=== PATIENT | male | born 1950 | race Caucasian/White ===

== ENCOUNTER → 2017-12-01 | Outpatient (CLI) | payer BC, MEDICARE | LOC: M ADAMS 10:15 | DX: I12.9 Hypertensive chronic kidney disease with stage 1 through stage 4 chronic kidney disease, or unspecified chronic kidney disease (principal) | CPT/HCPCS: 71046 ==

== ENCOUNTER → 2018-01-12 | Outpatient (REF) ==
[2018-01-12 09:08] LABS: HEMATOCRIT 33.5 % (42.0-52.0); HEMOGLOBIN 11.2 g/dl (14.0-18.0); MEAN CORPUSCULAR HEMOGLOBIN 31.5 pg (27.0-33.0); MEAN CORPUSCULAR HGB CONC 33.4 g/dl (32.0-36.5); MEAN CORPUSCULAR VOLUME 94.4 fl (80.0-96.0); PLATELET COUNT, AUTOMATED 336 10^3/uL (150-450); RED BLOOD COUNT 3.55 10^6/uL (4.30-6.10); RED CELL DISTRIBUTION WIDTH 14.7 % (11.5-14.5); WHITE BLOOD COUNT 8.9 10^3/uL (4.0-10.0)
[2018-01-12 09:47] LABS: ALBUMIN 2.6 GM/DL (3.2-5.2); ALBUMIN/GLOBULIN RATIO 0.81 (1.00-1.93); ALKALINE PHOSPHATASE 206 U/L (45-117); ALT/SGPT 24 U/L (12-78); ANION GAP 7 MEQ/L (8-16); AST/SGOT 14 U/L (7-37); BILIRUBIN,TOTAL 0.6 MG/DL (0.2-1.0); BLOOD UREA NITROGEN 26 MG/DL (7-18); CALCIUM LEVEL 8.6 MG/DL (8.8-10.2); CARBON DIOXIDE LEVEL 35 MEQ/L (21-32); CHLORIDE LEVEL 92 MEQ/L (98-107); CREATININE FOR GFR 0.71 MG/DL (0.70-1.30); GLOMERULAR FILTRATION RATE > 60.0 (>49); GLUCOSE, FASTING 266 MG/DL (70-100); POTASSIUM SERUM 4.3 MEQ/L (3.5-5.1); SODIUM LEVEL 134 MEQ/L (136-145); TOTAL PROTEIN 5.8 GM/DL (6.4-8.2)
== END ==
DX: I10 Essential (primary) hypertension (principal)

== ENCOUNTER → 2018-01-19 | Outpatient (REF) ==
[2018-01-19 10:41] LABS: BASO # 0.1 10^3/uL (0.0-0.2); BASO % 0.6 % (0.0-1.0); EOS # 0.1 10^3/uL (0.0-0.50); EOS % 1.7 % (0.0-3.0); HEMATOCRIT 35.8 % (42.0-52.0); HEMOGLOBIN 11.4 g/dl (14.0-18.0); IMMATURE GRANULOCYTE % 0.5 % (0-3.0); LYMPH % 11.9 % (24.0-44.0); MEAN CORPUSCULAR HEMOGLOBIN 30.8 pg (27.0-33.0); MEAN CORPUSCULAR HGB CONC 31.8 g/dl (32.0-36.5); MEAN CORPUSCULAR VOLUME 96.8 fl (80.0-96.0); MONO % 11.8 % (0.0-5.0); NEUTROPHILS # 6.1 10^3/uL (1.8-7.7); NEUTROPHILS % 73.5 % (36.0-66.0); PLATELET COUNT, AUTOMATED 243 10^3/uL (150-450); WHITE BLOOD COUNT 8.3 10^3/uL (4.0-10.0)
[2018-01-19 11:05] LABS: ALBUMIN 2.8 GM/DL (3.2-5.2); ALBUMIN/GLOBULIN RATIO 0.88 (1.00-1.93); ALKALINE PHOSPHATASE 269 U/L (45-117); ALT/SGPT 28 U/L (12-78); ANION GAP 6 MEQ/L (8-16); AST/SGOT 20 U/L (7-37); BILIRUBIN,TOTAL 0.4 MG/DL (0.2-1.0); BLOOD UREA NITROGEN 34 MG/DL (7-18); CALCIUM LEVEL 8.2 MG/DL (8.8-10.2); CARBON DIOXIDE LEVEL 35 MEQ/L (21-32); CHLORIDE LEVEL 95 MEQ/L (98-107); CREATININE FOR GFR 0.75 MG/DL (0.70-1.30); GLOMERULAR FILTRATION RATE > 60.0 (>49); GLUCOSE, FASTING 287 MG/DL (70-100); POTASSIUM SERUM 4.8 MEQ/L (3.5-5.1); SODIUM LEVEL 136 MEQ/L (136-145)
== END ==
DX: I48.91 Unspecified atrial fibrillation (principal); I10 Essential (primary) hypertension

== ENCOUNTER → 2018-01-25 | Outpatient (CLI) | payer MEDICARE, BC, OTHER | LOC: M RAD 07:52 | DX: R22.41 Localized swelling, mass and lump, right lower limb (principal) | CPT/HCPCS: 76882 ==

== ENCOUNTER → 2018-01-26 | Outpatient (REF) ==
[2018-01-25 10:29] LABS: BASO # 0.1 10^3/uL (0.0-0.2); BASO % 0.6 % (0.0-1.0); EOS # 0.2 10^3/uL (0.0-0.50); EOS % 2.3 % (0.0-3.0); HEMATOCRIT 38.8 % (42.0-52.0); HEMOGLOBIN 12.4 g/dl (14.0-18.0); IMMATURE GRANULOCYTE % 0.6 % (0-3.0); LYMPH # 1.6 10^3/uL (1.5-4.5); LYMPH % 20.1 % (24.0-44.0); MEAN CORPUSCULAR HEMOGLOBIN 31.3 pg (27.0-33.0); MONO # 0.8 10^3/uL (0.0-0.8); MONO % 10.2 % (0.0-5.0); NEUTROPHILS # 5.1 10^3/uL (1.8-7.7); NEUTROPHILS % 66.2 % (36.0-66.0); PLATELET COUNT, AUTOMATED 268 10^3/uL (150-450); RED BLOOD COUNT 3.96 10^6/uL (4.30-6.10); RED CELL DISTRIBUTION WIDTH 15.7 % (11.5-14.5); WHITE BLOOD COUNT 7.8 10^3/uL (4.0-10.0)
[2018-01-25 11:05] LABS: ALBUMIN 3.1 GM/DL (3.2-5.2); ALBUMIN/GLOBULIN RATIO 0.86 (1.00-1.93); ALKALINE PHOSPHATASE 244 U/L (45-117); ALT/SGPT 33 U/L (12-78); ANION GAP 6 MEQ/L (8-16); AST/SGOT 23 U/L (7-37); BILIRUBIN,TOTAL 0.4 MG/DL (0.2-1.0); BLOOD UREA NITROGEN 38 MG/DL (7-18); CARBON DIOXIDE LEVEL 37 MEQ/L (21-32); CHLORIDE LEVEL 95 MEQ/L (98-107); CREATININE FOR GFR 0.78 MG/DL (0.70-1.30); GLOMERULAR FILTRATION RATE > 60.0 (>49); GLUCOSE, FASTING 108 MG/DL (70-100); POTASSIUM SERUM 4.1 MEQ/L (3.5-5.1); SODIUM LEVEL 138 MEQ/L (136-145); TOTAL PROTEIN 6.7 GM/DL (6.4-8.2)
== END ==
DX: E87.5 Hyperkalemia (principal); I10 Essential (primary) hypertension

== ENCOUNTER → 2018-01-31 | Outpatient (CLI) | payer MEDICARE | LOC: M ST 11:12 | DX: R13.12 Dysphagia, oropharyngeal phase (principal) | CPT/HCPCS: 74230 ==

== ENCOUNTER → 2018-02-09 | Outpatient (REF) ==
[2018-02-09 13:51] LABS: ANION GAP 6 MEQ/L (8-16); BLOOD UREA NITROGEN 10 MG/DL (7-18); CALCIUM LEVEL 8.5 MG/DL (8.8-10.2); CARBON DIOXIDE LEVEL 32 MEQ/L (21-32); CHLORIDE LEVEL 103 MEQ/L (98-107); CREATININE FOR GFR 0.81 MG/DL (0.70-1.30); GLOMERULAR FILTRATION RATE > 60.0 (>49); GLUCOSE, FASTING 245 MG/DL (70-100); POTASSIUM SERUM 4.5 MEQ/L (3.5-5.1); SODIUM LEVEL 141 MEQ/L (136-145)
== END ==
DX: I48.91 Unspecified atrial fibrillation (principal); E11.9 Type 2 diabetes mellitus without complications; E78.00 Pure hypercholesterolemia, unspecified; Z95.1 Presence of aortocoronary bypass graft; I10 Essential (primary) hypertension; J44.9 Chronic obstructive pulmonary disease, unspecified; Z93.1 Gastrostomy status

== ENCOUNTER → 2018-02-17 | Outpatient (REF) | payer MEDICARE, BC ==
[2018-02-17 12:18] LABS: HEMATOCRIT 45.8 % (42.0-52.0); HEMOGLOBIN 14.6 g/dl (13.5-17.5); MEAN CORPUSCULAR HEMOGLOBIN 29.9 pg (27.0-33.0); MEAN CORPUSCULAR HGB CONC 31.9 g/dl (32.0-36.5); MEAN CORPUSCULAR VOLUME 93.7 fl (80.0-96.0); PLATELET COUNT, AUTOMATED 301 10^3/uL (150-450); RED BLOOD COUNT 4.89 10^6/uL (4.30-6.10); RED CELL DISTRIBUTION WIDTH 14.6 % (11.5-14.5); WHITE BLOOD COUNT 8.4 10^3/uL (4.0-10.0)
[2018-02-17 12:50] LABS: ALBUMIN 3.6 GM/DL (3.2-5.2); ALBUMIN/GLOBULIN RATIO 1.09 (1.00-1.93); ALKALINE PHOSPHATASE 128 U/L (45-117); ALT/SGPT 23 U/L (12-78); ANION GAP 7 MEQ/L (8-16); AST/SGOT 18 U/L (7-37); BILIRUBIN,TOTAL 0.5 MG/DL (0.2-1.0); BLOOD UREA NITROGEN 13 MG/DL (7-18); CALCIUM LEVEL 9.1 MG/DL (8.8-10.2); CARBON DIOXIDE LEVEL 31 MEQ/L (21-32); CHLORIDE LEVEL 102 MEQ/L (98-107); CHOLESTEROL LEVEL 136 MG/DL (<200); CREATININE FOR GFR 0.64 MG/DL (0.70-1.30); GLOMERULAR FILTRATION RATE > 60.0 (>49); GLUCOSE, FASTING 132 MG/DL (70-100); HDL CHOLESTEROL 50 MG/DL (>40); LDL CHOLESTEROL 63.8 MG/DL (<100); NON-HDL-C 86 MG/DL; POTASSIUM SERUM 4.1 MEQ/L (3.5-5.1); SODIUM LEVEL 140 MEQ/L (136-145); TOTAL PROTEIN 6.9 GM/DL (6.4-8.2); TRIGLYCERIDES LEVEL 111 MG/DL (<150)
[2018-02-17 13:32] LABS: ESTIMATED AVERAGE GLUCOSE 169 MG/DL (60-110); HEMOGLOBIN A1c 7.5 %
== END ==
LOC: M SFHCADAM 09:54
DX: J32.9 Chronic sinusitis, unspecified (principal); E11.21 Type 2 diabetes mellitus with diabetic nephropathy; E78.2 Mixed hyperlipidemia
CPT/HCPCS: 80053

== ENCOUNTER 2018-03-17 11:48 | Outpatient (RCR) | payer MEDICARE, BC | END 2018-03-21 | LOC: M CR 11:48 | DX: Z51.89 Encounter for other specified aftercare (principal); Z95.1 Presence of aortocoronary bypass graft | CPT/HCPCS: 93798 ==

== ENCOUNTER 2018-03-24 14:36 | Outpatient (RCR) | payer MEDICARE, BC | END 2018-04-21 | LOC: M CR 14:36 | DX: Z95.1 Presence of aortocoronary bypass graft (principal) | CPT/HCPCS: 93798 ==

== ENCOUNTER → 2018-04-04 | Outpatient (CLI) | payer MEDICARE, BC ==
[~2018-04-04] MED LIST: ISOVUE-370 76% 100ML VIAL (Q9967) As Ordered
== END ==
LOC: M RAD 12:17
DX: J90 Pleural effusion, not elsewhere classified (principal); L72.3 Sebaceous cyst; R93.0 Abnormal findings on diagnostic imaging of skull and head, not elsewhere classified
CPT/HCPCS: Q9967

== ENCOUNTER → 2018-05-04 | Outpatient (CLI) | payer MEDICARE, BC | LOC: M PLARAD 07:35 | DX: C13.9 Malignant neoplasm of hypopharynx, unspecified (principal); J90 Pleural effusion, not elsewhere classified; M48.02 Spinal stenosis, cervical region; Z93.0 Tracheostomy status | CPT/HCPCS: 78815 ==

== ENCOUNTER → 2018-05-20 | Outpatient (REF) | payer MEDICARE, BC ==
[2018-05-20 19:24] LABS: BASO # 0.1 10^3/uL (0.0-0.2); BASO % 0.7 % (0.0-1.0); EOS # 0.2 10^3/uL (0.0-0.50); EOS % 2.2 % (0.0-3.0); HEMATOCRIT 41.7 % (42.0-52.0); HEMOGLOBIN 13.6 g/dl (13.5-17.5); IMMATURE GRANULOCYTE % 0.1 % (0-3.0); LYMPH # 2.4 10^3/uL (1.5-4.5); MEAN CORPUSCULAR HEMOGLOBIN 28.9 pg (27.0-33.0); MEAN CORPUSCULAR HGB CONC 32.6 g/dl (32.0-36.5); MEAN CORPUSCULAR VOLUME 88.5 fl (80.0-96.0); MONO # 0.8 10^3/uL (0.0-0.8); MONO % 8.5 % (0.0-5.0); NEUTROPHILS # 5.7 10^3/uL (1.8-7.7); NEUTROPHILS % 62.5 % (36.0-66.0); PLATELET COUNT, AUTOMATED 344 10^3/uL (150-450); RED BLOOD COUNT 4.71 10^6/uL (4.30-6.10); RED CELL DISTRIBUTION WIDTH 16.2 % (11.5-14.5); WHITE BLOOD COUNT 9.2 10^3/uL (4.0-10.0)
[2018-05-20 19:31] LABS: ANION GAP 6 MEQ/L (8-16); BLOOD UREA NITROGEN 12 MG/DL (7-18); CALCIUM LEVEL 8.6 MG/DL (8.8-10.2); CARBON DIOXIDE LEVEL 32 MEQ/L (21-32); CHLORIDE LEVEL 104 MEQ/L (98-107); GLOMERULAR FILTRATION RATE > 60.0 (>49); GLUCOSE, FASTING 165 MG/DL (70-100); POTASSIUM SERUM 4.5 MEQ/L (3.5-5.1); SODIUM LEVEL 142 MEQ/L (136-145)
== END ==
LOC: M SFHCADAM 15:27
DX: E11.21 Type 2 diabetes mellitus with diabetic nephropathy (principal); J04.10 Acute tracheitis without obstruction
CPT/HCPCS: 80048

== ENCOUNTER → 2018-05-26 | Outpatient (CLI) | payer MEDICARE, BC | LOC: M ONCR 13:12 | DX: C13.9 Malignant neoplasm of hypopharynx, unspecified (principal) ==

== ENCOUNTER → 2018-06-06 | Outpatient (REF) | payer MEDICARE, BC ==
[2018-06-06 14:27] LABS: INR 1.02; PROTHROMBIN TIME 13.6 SECONDS (12.1-14.4)
[2018-06-06 14:28] LABS: PARTIAL THROMBOPLASTIN TIME 28.5 SECONDS (25.4-37.6)
== END ==
LOC: M LAB REF 13:45
DX: C13.9 Malignant neoplasm of hypopharynx, unspecified (principal)
CPT/HCPCS: 85610

== ENCOUNTER 2018-06-07 09:56 | Outpatient (RCR) | payer MEDICARE, BC | END 2018-06-21 | LOC: M ONCR 09:56 | DX: C13.9 Malignant neoplasm of hypopharynx, unspecified (principal) | CPT/HCPCS: 77300 ==

== ENCOUNTER → 2018-06-21 | Outpatient (CLI) | payer MEDICARE, BC ==
[~2018-06-21] MED LIST changes: -ISOVUE-370 76% 100ML VIAL (Q9967) As Ordered; +LIDOCAINE 2% MDV 20 ML VIAL As Ordered; +ceFAZolin 1GM INJ (J0690 PER 500MG) As Ordered
== END | disposition home or self-care (01) ==
LOC: M IRPRO 08:09
DX: C32.9 Malignant neoplasm of larynx, unspecified (principal)
CPT/HCPCS: 36561

== ENCOUNTER 2018-06-22 10:17 | Outpatient (RCR) | payer MEDICARE, BC | END 2018-07-22 | LOC: M ONCR 10:17 | DX: C13.9 Malignant neoplasm of hypopharynx, unspecified (principal) | CPT/HCPCS: 77300 ==

== ENCOUNTER → 2018-06-24 | Outpatient (REF) | payer MEDICARE, BC ==
[2018-06-24 14:13] LABS: MAGNESIUM LEVEL 2.3 MG/DL (1.8-2.4)
== END ==
LOC: M LAB REF 13:50
DX: C13.9 Malignant neoplasm of hypopharynx, unspecified (principal)
CPT/HCPCS: 83735

== ENCOUNTER → 2018-07-06 | Outpatient (CLI) | payer MEDICARE, BC ==
[2018-07-06 08:21] LABS: BASO # 0.1 10^3/uL (0.0-0.2); BASO % 0.7 % (0.0-1.0); EOS # 0.1 10^3/uL (0.0-0.50); EOS % 1.2 % (0.0-3.0); HEMOGLOBIN 14.6 g/dl (13.5-17.5); IMMATURE GRANULOCYTE % 0.3 % (0-3.0); LYMPH # 0.6 10^3/uL (1.5-4.5); LYMPH % 7.3 % (24.0-44.0); MEAN CORPUSCULAR HEMOGLOBIN 30.4 pg (27.0-33.0); MEAN CORPUSCULAR HGB CONC 33.2 g/dl (32.0-36.5); MEAN CORPUSCULAR VOLUME 91.7 fl (80.0-96.0); MONO # 0.7 10^3/uL (0.0-0.8); MONO % 9.1 % (0.0-5.0); NEUTROPHILS # 6.3 10^3/uL (1.8-7.7); NEUTROPHILS % 81.4 % (36.0-66.0); PLATELET COUNT, AUTOMATED 204 10^3/uL (150-450); RED CELL DISTRIBUTION WIDTH 16.7 % (11.5-14.5); WHITE BLOOD COUNT 7.7 10^3/uL (4.0-10.0)
[2018-07-06 09:07] LABS: ALBUMIN 3.6 GM/DL (3.2-5.2); ALBUMIN/GLOBULIN RATIO 1.33 (1.00-1.93); ALKALINE PHOSPHATASE 87 U/L (45-117); ALT/SGPT 25 U/L (12-78); ANION GAP 7 MEQ/L (8-16); AST/SGOT 16 U/L (7-37); BILIRUBIN,TOTAL 0.4 MG/DL (0.2-1.0); BLOOD UREA NITROGEN 13 MG/DL (7-18); CARBON DIOXIDE LEVEL 31 MEQ/L (21-32); CHLORIDE LEVEL 103 MEQ/L (98-107); CREATININE FOR GFR 0.75 MG/DL (0.70-1.30); GLOMERULAR FILTRATION RATE > 60.0 (>49); GLUCOSE, FASTING 98 MG/DL (70-100); POTASSIUM SERUM 4.5 MEQ/L (3.5-5.1); SODIUM LEVEL 141 MEQ/L (136-145); TOTAL PROTEIN 6.3 GM/DL (6.4-8.2)
== END ==
LOC: M LAB 08:01
DX: C13.9 Malignant neoplasm of hypopharynx, unspecified (principal)
CPT/HCPCS: 80053

== ENCOUNTER → 2018-07-13 | Outpatient (CLI) | payer MEDICARE, BC ==
[2018-07-13 08:37] LABS: BASO % 0.8 % (0.0-1.0); EOS # 0.1 10^3/uL (0.0-0.50); EOS % 1.1 % (0.0-3.0); HEMATOCRIT 40.6 % (42.0-52.0); HEMOGLOBIN 13.7 g/dl (13.5-17.5); IMMATURE GRANULOCYTE % 0.4 % (0-3.0); LYMPH # 0.6 10^3/uL (1.5-4.5); LYMPH % 10.5 % (24.0-44.0); MEAN CORPUSCULAR HGB CONC 33.7 g/dl (32.0-36.5); MEAN CORPUSCULAR VOLUME 91.9 fl (80.0-96.0); MONO # 0.4 10^3/uL (0.0-0.8); MONO % 7.9 % (0.0-5.0); NEUTROPHILS # 4.1 10^3/uL (1.8-7.7); NEUTROPHILS % 79.3 % (36.0-66.0); PLATELET COUNT, AUTOMATED 121 10^3/uL (150-450); RED BLOOD COUNT 4.42 10^6/uL (4.30-6.10); RED CELL DISTRIBUTION WIDTH 16.7 % (11.5-14.5); WHITE BLOOD COUNT 5.2 10^3/uL (4.0-10.0)
[2018-07-13 08:53] LABS: ALBUMIN 3.3 GM/DL (3.2-5.2); ALBUMIN/GLOBULIN RATIO 1.18 (1.00-1.93); ALKALINE PHOSPHATASE 92 U/L (45-117); ALT/SGPT 22 U/L (12-78); ANION GAP 6 MEQ/L (8-16); AST/SGOT 10 U/L (7-37); BILIRUBIN,TOTAL 0.4 MG/DL (0.2-1.0); BLOOD UREA NITROGEN 18 MG/DL (7-18); CALCIUM LEVEL 8.6 MG/DL (8.8-10.2); CARBON DIOXIDE LEVEL 33 MEQ/L (21-32); CHLORIDE LEVEL 100 MEQ/L (98-107); CREATININE FOR GFR 0.75 MG/DL (0.70-1.30); GLOMERULAR FILTRATION RATE > 60.0 (>49); GLUCOSE, FASTING 271 MG/DL (70-100); POTASSIUM SERUM 4.5 MEQ/L (3.5-5.1); SODIUM LEVEL 139 MEQ/L (136-145); TOTAL PROTEIN 6.1 GM/DL (6.4-8.2)
== END ==
LOC: M LAB 07:41
DX: C13.9 Malignant neoplasm of hypopharynx, unspecified (principal)
CPT/HCPCS: 80053

== ENCOUNTER 2018-07-26 09:30 | Outpatient (RCR) | payer MEDICARE, BC | END 2018-08-21 | LOC: M ONCR 09:30 | DX: C13.9 Malignant neoplasm of hypopharynx, unspecified (principal) | CPT/HCPCS: 77336 ==

== ENCOUNTER → 2018-08-31 | Outpatient (CLI) | payer MEDICARE, BC | LOC: M ONCR 09:04 | DX: C13.9 Malignant neoplasm of hypopharynx, unspecified (principal); Z93.0 Tracheostomy status; Z93.1 Gastrostomy status | CPT/HCPCS: G0463 ==

== ENCOUNTER → 2018-10-25 | Outpatient (CLI) | payer MEDICARE, BC | LOC: M PLARAD 08:16 | DX: C13.9 Malignant neoplasm of hypopharynx, unspecified (principal) | CPT/HCPCS: 78815 ==

== ENCOUNTER → 2018-10-26 | Outpatient (CLI) | payer MEDICARE, BC | LOC: M ONCR 09:06 | DX: C13.9 Malignant neoplasm of hypopharynx, unspecified (principal) | CPT/HCPCS: G0463 ==

== ENCOUNTER → 2018-11-10 | Outpatient (CLI) | payer MEDICARE, BC ==
[~2018-11-10] MED LIST changes: +ACID1CAP PO; +ASPI81CH32 PO; +CARV3.12 PO; +CORE3.12 PO; +COUM2.5T17 PO; +INSULANT SC; +IRON65TA PO; +LASI20TA3 PO; +LIDO1SOL7 PO; -LIDOCAINE 2% MDV 20 ML VIAL As Ordered; +LIDOCAINE 2% MDV 20 ML VIAL As Ordered ONE; +LIPI10TA PO; +MAGN400C2 PO; +MULT1TAB18 PO; +RA K500C PO; +SILV1CRE60 TOP; +SILV40CR EXT; +SING10TA32 PO; +VITA-110 PO; +VITA500C24 PO; +[UNRECOGNIZED DRUG - OTHER]; -ceFAZolin 1GM INJ (J0690 PER 500MG) As Ordered
--- NOTE | 2018-12-14 07:15 | REPIR ---
DATE OF PROCEDURE: 11/10/2018 PREOPERATIVE DIAGNOSIS: Right internal jugular vein tunneled central venous catheter with subcutaneous port. POSTOPERATIVE DIAGNOSES: Right internal jugular vein tunneled central venous catheter with subcutaneous port. PROCEDURE PERFORMED: Removal of right internal jugular vein tunneled central venous catheter with subcutaneous port. SURGEON: Dr. Kwaku Aj. DIRECTOR OF HOTEL: Aaliyah Aguilar and Melodie Barton. ANESTHESIA: Local with 20 mL of 2% lidocaine. FLUORO TIME: 0.1 minutes. CONTRAST: None. COMPLICATIONS: None. DRAINS: None. SPECIMENS: None. IMPLANTS: None. INDICATION: The patient is a 68-year-old male with placement of a Port-A-Cath for access and chemotherapy who now no longer requires the port. The patient will undergo removal of the right internal jugular vein tunneled central venous catheter. The procedure was described and explained to the patient in detail including drawing of pictures, demonstrating the procedure and the anatomy. Risks, benefits and alternative options were discussed with the patient. Alternative options included were not limited to no intervention. Benefits included were not limited to removal of the port reducing the risks associated with leaving the port in place. Risks included but were not limited to infection, bleeding, pneumothorax, hemothorax, possible need for open surgical intervention, renal failure requiring hemodialysis, cerebrovascular accident, myocardial infarction, pulmonary embolus, venous thrombosis, loss of limb, loss to life poor outcome and poor results. The patient's questions were answered. The patient voices acceptance of these and understanding of these risks, benefits and alternative options and agrees to proceed with removal of the right internal jugular vein tunneled central venous catheter with subcutaneous port. DESCRIPTION OF PROCEDURE: The patient was taken to the angiography suite, placed supine on the angiography room table and the port was evaluated under fluoroscopy and noted to be in good position and good alignment. The tissue overlying the port was then anesthetized with 2% lidocaine. An incision was made through the previous incision after which the port was dissected free and removed as well as the catheter. The tunnel where the catheter was closed using a #3-0 Monocryl suture in [id number] fashion to prevent bleeding. The wound was then closed using #3-0 Monocryl in inverted interrupted fashion. Steri-Strips and dressings were applied. The patient tolerated the procedure well. All instrument, sponge, needle counts were correct at the end of the case. There were no complications. Dr. Aj was present for and directed the entire case. The patient was transferred holding and subsequently discharged in stable condition. The procedure and results were discussed with the patient and all his questions answered in the postprocedure holding area. Final fluoroscopic image showed no pneumothorax or hemothorax with the port removed with no remnants remaining.
== END | disposition home or self-care (01) ==
LOC: M IRPRO 08:20
PROVIDERS: ATTEND Internal Medicine Medical Oncology
DX: Z45.2 Encounter for adjustment and management of vascular access device (principal)

== ENCOUNTER → 2019-01-04 | Outpatient (CLI) | payer MEDICARE, BC ==
[~2019-01-04] MED LIST changes: +ISOVUE-370 76% 100ML VIAL (Q9967) As Ordered ONE; -LIDOCAINE 2% MDV 20 ML VIAL As Ordered ONE
--- NOTE | 2019-01-04 09:37 | REP ---
CT NECK WITH CONTRAST: HISTORY: Hypopharyngeal carcinoma. CONTRAST: Isovue 370, 75 mL. COMPARISON: 04/04/2018. The patient is status post tracheostomy. An ill-defined soft tissue mass is present in the hypopharynx There is complete effacement of the hypopharynx and airway. There is superior extension into the base of the epiglottis and pre-epiglottic space. There is inferior extension into the false and true vocal cords and subglottic trachea. There is thickening of the epiglottis, platysma and strap muscles. Increased density is present in the anterior subcutaneous tissues. These findings are consistent with postradiation change. The naso- and oropharynx are normal in appearance. The salivary and thyroid glands are normal in size and density. Small lymph nodes less than 1 cm in size are present in internal jugular chains, posterior triangles and submandibular areas. A 1.9 cm mass with a hypodense center is present in the midline posterior subcutaneous tissue at the C2 level. This represents a sebaceous cyst or possibly a necrotic lymph node. Atherosclerotic calcification is present at the carotid bifurcations. Degenerative change is present in the cervical spine. Large posterior osteophytes are present at the C5-6 level. This produces severe central canal stenosis. The lung apices are clear. The visualized sinuses are clear. IMPRESSION: 1. There is an ill-defined hypopharyngeal mass with complete effacement of the hypopharynx and airway. 2. Findings consistent with postradiation change. 3. The patient is status post tracheostomy. Electronically Signed by Todd Kirkland MD 01/04/2019 09:48 A
== END ==
LOC: M RAD 08:13
PROVIDERS: ATTEND Otolaryngology
DX: C13.9 Malignant neoplasm of hypopharynx, unspecified (principal); Z93.0 Tracheostomy status
CPT/HCPCS: 70491; G0463; Q9967

== ENCOUNTER → 2019-01-30 | Outpatient (CLI) | payer MEDICARE, BC ==
[~2019-01-30] MED LIST changes: -ISOVUE-370 76% 100ML VIAL (Q9967) As Ordered ONE
--- NOTE | 2019-01-30 11:34 | REP ---
Chest two views HISTORY: Pleural effusion Comparison: 12/01/2017 Parenchymal density is present in the left lower lobe consistent with atelectasis or infiltrate. A small left pleural effusion is present. The right lung is clear. The heart is normal in size. The pulmonary vasculature is normal in appearance. The bony structure is intact. An external defibrillator and tracheostomy are present. IMPRESSION: 1. Left lower lobe atelectasis or infiltrate. 2. Small left pleural effusion. Electronically Signed by Todd Kirkland MD 01/30/2019 11:26 A
== END ==
LOC: M RAD 09:32
PROVIDERS: ATTEND Family Medicine
DX: J90 Pleural effusion, not elsewhere classified (principal)

== ENCOUNTER → 2019-02-01 | Outpatient (REF) | payer MEDICARE, BC ==
[~2019-02-01] MED LIST changes: -ASPI81CH32 PO; +ASPI81CH33 PO; -LIDO1SOL7 PO; +LIDO1SOL8 PO
== END ==
LOC: M LAB REF 17:40
PROVIDERS: ATTEND Surgery
DX: E11.621 Type 2 diabetes mellitus with foot ulcer (principal); L97.524 Non-pressure chronic ulcer of other part of left foot with necrosis of bone
CPT/HCPCS: 11044; 87070; 87077; 88304; G0463

== ENCOUNTER → 2019-02-16 | Outpatient (REF) | payer MEDICARE, BC | LOC: M SFHCPLAZ 11:49 | PROVIDERS: ATTEND Internal Medicine Infectious Disease | DX: J42 Unspecified chronic bronchitis (principal); L59.8 Other specified disorders of the skin and subcutaneous tissue related to radiation; J38.7 Other diseases of larynx; L97.524 Non-pressure chronic ulcer of other part of left foot with necrosis of bone | CPT/HCPCS: 11042; 36415; 80048; 85025; 85652; 86140; 87070; 87077; 87186; 87205; G0277; G0463 ==

== ENCOUNTER → 2019-04-06 | Outpatient (REF) | payer MEDICARE, BC | LOC: M SFHCPLAZ 13:18 | PROVIDERS: ATTEND Internal Medicine Infectious Disease | DX: J42 Unspecified chronic bronchitis (principal); E11.21 Type 2 diabetes mellitus with diabetic nephropathy; L59.8 Other specified disorders of the skin and subcutaneous tissue related to radiation | CPT/HCPCS: 87070; 87077; 87186; 87205; G0277 ==

== ENCOUNTER → 2019-04-07 | Outpatient (REF) | payer MEDICARE, BC ==
[2019-04-07 14:03] LABS: HEMATOCRIT 41.5 % (42.0-52.0); HEMOGLOBIN 13.8 g/dl (13.5-17.5); MEAN CORPUSCULAR HEMOGLOBIN 31.1 pg (27.0-33.0); MEAN CORPUSCULAR HGB CONC 33.3 g/dl (32.0-36.5); MEAN CORPUSCULAR VOLUME 93.5 fl (80.0-96.0); PLATELET COUNT, AUTOMATED 212 10^3/uL (150-450); RED BLOOD COUNT 4.44 10^6/uL (4.30-6.10); WHITE BLOOD COUNT 6.4 10^3/uL (4.0-10.0)
[2019-04-07 14:35] LABS: ERYTHROCYTE SEDIMENTATION RATE 25 mm/hr (0-20)
[2019-04-07 14:59] LABS: ALBUMIN 3.3 GM/DL (3.2-5.2); ALT/SGPT 25 U/L (12-78); BILIRUBIN,TOTAL 0.3 MG/DL (0.2-1.0); BLOOD UREA NITROGEN 16 MG/DL (7-18); C REACTIVE PROTEIN QUANTITATIV 0.64 MG/DL (0.00-0.30); CALCIUM LEVEL 8.5 MG/DL (8.8-10.2); CARBON DIOXIDE LEVEL 29 MEQ/L (21-32); CHLORIDE LEVEL 103 MEQ/L (98-107); CHOLESTEROL LEVEL 108 MG/DL (<200); CHOLESTEROL RISK RATIO 2.297 (<5); CREATININE FOR GFR 0.78 MG/DL (0.70-1.30); FERRITIN 80 NG/ML (26-388); FREE T4 0.85 NG/DL (0.76-1.46); GLOMERULAR FILTRATION RATE > 60.0 (>49); GLUCOSE, FASTING 193 MG/DL (70-100); HDL CHOLESTEROL 47 MG/DL (>40); IRON (FE) 81 UG/DL (65-175); LDL CHOLESTEROL 45 MG/DL (<100); NON-HDL-C 61 MG/DL; PERCENT SATURATION 29.5 % (19.7-50.0); POTASSIUM SERUM 4.2 MEQ/L (3.5-5.1); SODIUM LEVEL 139 MEQ/L (136-145); TOTAL IRON BINDING CAPACITY 275 UG/DL (250-450); TOTAL PROTEIN 6.3 GM/DL (6.4-8.2); TRIGLYCERIDES LEVEL 81 MG/DL (<150)
[2019-04-07 18:36] LABS: HEMOGLOBIN A1c 9.3 %
== END ==
LOC: M SFHCADAM 13:10
PROVIDERS: ATTEND Family Medicine
DX: E11.21 Type 2 diabetes mellitus with diabetic nephropathy (principal); D64.9 Anemia, unspecified; F43.21 Adjustment disorder with depressed mood; E78.2 Mixed hyperlipidemia; L59.8 Other specified disorders of the skin and subcutaneous tissue related to radiation
CPT/HCPCS: 15275; 80053; 80061; 82728; 83036; 83550; 84439; 84443; 85027; 85046; 85652; 86140; G0277; Q4186

== ENCOUNTER → 2019-04-11 | Outpatient (CLI) | payer MEDICARE, BC ==
--- NOTE | 2019-04-16 10:58 | RADONC ---
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 ECOG performance status zero. FOLLOWUP NOTE: Mr. 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 The patient presents today reporting that he is doing quite well with no significant difficulties related to his radiation therapy other than some tenderness around his tracheostomy. He has been on antibiotics since July for an infected trache. He is going for hyperbaric oxygen treatments as well for his tracheostomy. In the meantime, he is able to swallow and has actually gained quite a bit of weight. The patient's review of systems is positive for the discomfort around the tracheostomy as well as the need for treatment of that but is otherwise noncontributory. He denies nausea, vomiting, fevers, chills, night sweats, diplopia, headaches, anxiety or depression, anorexia, weight loss, visual disturbances, chest pain, urinary or bowel difficulties, bone pain, or neurological problems. PHYSICAL EXAMINATION: The patient is a well-developed, well-nourished white male in no acute distress. HEENT: Exam is normocephalic, atraumatic. Extraocular movements are intact. Examination of the patient's oral cavity shows no lesions, nodularity or evidence of disease. There is no palpable preauricular, cervical, supraclavicular, infraclavicular or axillary lymphadenopathy present. He has a tracheostomy site present. His lungs are clear to auscultation and percussion. The remainder of his physical exam remains unchanged except for a weight gain of 20 pounds since October. ASSESSMENT: Overall the patient is doing well at this point and is being seen every few weeks by his head and neck surgeon for laryngoscopic evaluation. In addition, he is undergoing hyperbaric oxygen treatments as well as antibiotic therapy for his tracheostomy site issues. In light of this, I have not set up a definitive followup in our office except on a p.r.n. basis. He has been instructed to contact us at anytime if we could be of any assistance to him whatsoever. Once again, he is being examined with laryngoscopic evaluation every few weeks and his tracheostomy site is under constant monitoring here as well. He has been given my cell phone number as well as office number if he has any questions or if he wishes to return to follow up with us. cc: MD Angela Britt MD Jesse Ryan, MD
== END ==
LOC: M ONCR 08:54
PROVIDERS: ATTEND Radiology Radiation Oncology
DX: C13.9 Malignant neoplasm of hypopharynx, unspecified (principal); L59.8 Other specified disorders of the skin and subcutaneous tissue related to radiation
CPT/HCPCS: G0277; G0463

== ENCOUNTER → 2019-06-01 | Outpatient (REF) | payer MEDICARE, BC | LOC: M SFHCPLAZ 12:29 | PROVIDERS: ATTEND Internal Medicine Infectious Disease | DX: B37.9 Candidiasis, unspecified (principal) ==

== ENCOUNTER → 2019-06-12 | Outpatient (REF) | payer MEDICARE, BC | LOC: M SFHCPLAZ 13:01 | PROVIDERS: ATTEND Internal Medicine Infectious Disease | DX: J38.7 Other diseases of larynx (principal); L03.032 Cellulitis of left toe | CPT/HCPCS: 87070; 87077; 87186; 87205; G0463 ==

== ENCOUNTER → 2019-06-28 | Outpatient (CLI) | payer MEDICARE, BC ==
[2019-06-28 10:14] LABS: HEMOGLOBIN A1c 10.1 %
[2019-06-28 10:16] LABS: BLOOD UREA NITROGEN 14 MG/DL (7-18); CALCIUM LEVEL 8.6 MG/DL (8.8-10.2); CARBON DIOXIDE LEVEL 29 MEQ/L (21-32); CHLORIDE LEVEL 105 MEQ/L (98-107); CREATININE FOR GFR 0.84 MG/DL (0.70-1.30); FREE T4 0.79 NG/DL (0.76-1.46); GLOMERULAR FILTRATION RATE > 60.0 (>49); GLUCOSE, FASTING 186 MG/DL (70-100); POTASSIUM SERUM 4.3 MEQ/L (3.5-5.1); SODIUM LEVEL 139 MEQ/L (136-145)
== END ==
LOC: M LAB 08:49
PROVIDERS: ATTEND Family Medicine
DX: E03.8 Other specified hypothyroidism (principal); E11.21 Type 2 diabetes mellitus with diabetic nephropathy; L03.032 Cellulitis of left toe; R25.2 Cramp and spasm

== ENCOUNTER → 2019-06-28 | Outpatient (CLI) | payer MEDICARE, BC ==
[2019-06-28 09:47] LABS: BASO % 0.6 % (0.0-1.0); EOS # 0.1 10^3/uL (0.0-0.50); EOS % 2.1 % (0.0-3.0); HEMATOCRIT 42.8 % (42.0-52.0); HEMOGLOBIN 14.7 g/dl (13.5-17.5); LYMPH # 0.8 10^3/uL (1.5-4.5); LYMPH % 13.3 % (24.0-44.0); MEAN CORPUSCULAR HEMOGLOBIN 31.7 pg (27.0-33.0); MEAN CORPUSCULAR HGB CONC 34.3 g/dl (32.0-36.5); MEAN CORPUSCULAR VOLUME 92.2 fl (80.0-96.0); MONO # 0.7 10^3/uL (0.0-0.8); MONO % 10.6 % (0.0-5.0); NEUTROPHILS # 4.6 10^3/uL (1.8-7.7); NEUTROPHILS % 72.9 % (36.0-66.0); PLATELET COUNT, AUTOMATED 211 10^3/uL (150-450); RED BLOOD COUNT 4.64 10^6/uL (4.30-6.10); WHITE BLOOD COUNT 6.2 10^3/uL (4.0-10.0)
[2019-06-28 10:09] LABS: ALBUMIN 3.5 GM/DL (3.2-5.2); ALT/SGPT 22 U/L (12-78); BILIRUBIN,TOTAL 0.3 MG/DL (0.2-1.0); BLOOD UREA NITROGEN 14 MG/DL (7-18); C REACTIVE PROTEIN QUANTITATIV 0.67 MG/DL (0.00-0.30); CALCIUM LEVEL 8.6 MG/DL (8.8-10.2); CARBON DIOXIDE LEVEL 28 MEQ/L (21-32); CHLORIDE LEVEL 105 MEQ/L (98-107); GLOMERULAR FILTRATION RATE > 60.0 (>49); GLUCOSE, FASTING 183 MG/DL (70-100); MAGNESIUM LEVEL 2.4 MG/DL (1.8-2.4); POTASSIUM SERUM 4.3 MEQ/L (3.5-5.1); SODIUM LEVEL 139 MEQ/L (136-145); TOTAL PROTEIN 6.4 GM/DL (6.4-8.2)
[2019-06-28 10:12] LABS: ERYTHROCYTE SEDIMENTATION RATE 25 mm/hr (0-20)
== END ==
LOC: M LAB 08:54
PROVIDERS: ATTEND Internal Medicine Infectious Disease
DX: L03.032 Cellulitis of left toe (principal); R25.2 Cramp and spasm

== ENCOUNTER → 2019-08-08 | Outpatient (CLI) | payer MEDICARE, BC ==
[~2019-08-08] MED LIST changes: +ACIDCAP PO; +AMOX875T2; +BACT800T5 PO; +SULF1TAB93 PO; +SYNT50TA PO
[2019-08-08 10:41] LABS: ALBUMIN 3.5 GM/DL (3.2-5.2); ALT/SGPT 22 U/L (12-78); BILIRUBIN,TOTAL 0.3 MG/DL (0.2-1.0); BLOOD UREA NITROGEN 13 MG/DL (7-18); CALCIUM LEVEL 9.2 MG/DL (8.8-10.2); CARBON DIOXIDE LEVEL 30 MEQ/L (21-32); CHLORIDE LEVEL 104 MEQ/L (98-107); CREATININE FOR GFR 0.81 MG/DL (0.70-1.30); GLOMERULAR FILTRATION RATE > 60.0 (>49); GLUCOSE, FASTING 134 MG/DL (70-100); POTASSIUM SERUM 4.9 MEQ/L (3.5-5.1); SODIUM LEVEL 139 MEQ/L (136-145); TOTAL PROTEIN 6.2 GM/DL (6.4-8.2)
== END ==
LOC: M LAB 09:17
PROVIDERS: ATTEND Otolaryngology
DX: C13.9 Malignant neoplasm of hypopharynx, unspecified (principal)

== ENCOUNTER → 2019-08-14 | Outpatient (CLI) | payer MEDICARE, BC ==
[~2019-08-14] MED LIST changes: -ACIDCAP PO; -AMOX875T2; -BACT800T5 PO; +ISOVUE-370 76% 100ML VIAL (Q9967) As Ordered ONE
--- NOTE | 2019-08-14 12:49 | REP ---
SOFT-TISSUE CT STUDY OF THE NECK WITH IV CONTRAST: HISTORY: Hypopharyngeal CVA. Comparison CT study December [id number]. CT CONTRAST DOSE: 75 mL of intravenous Isovue [address] FINDINGS: Digital furnace clerk radiograph demonstrates that the patient is edentulous. Tracheostomy tube is seen in place. There are median sternotomy wires. The visualized paranasal sinuses are clear. No bony destructive lesion is seen. There is significant ossification of the posterior longitudinal ligament in the cervical spinal canal at C5 and C6 with severe central canal stenosis as a result unchanged from the comparison CT studies. No bony destructive lesion is seen. There are mild emphysematous changes in the lung apices. The left vertebral artery is small in caliber compared to its right-sided counterpart but both are patent. There is calcific plaquing in the carotid bifurcations bilaterally and calcific plaquing is seen in the distal internal carotid arteries bilaterally. Tracheostomy tube remains in place. The previously noted hypopharyngeal and supraglottic laryngeal mass effect is again seen obscuring the hypopharyngeal airway unchanged from comparison study. Epiglottis is diffusely somewhat thickened as before. No evidence of adenopathy is seen. There is interval erosion with loss of the formerly calcified anterior limb of the thyroid cartilage on the left. This may imply progressive disease. This is just above the tracheostomy site. The area of apparent erosion in the thyroid cartilage measures approximately 9 mm. The hyoid bone is intact and unchanged. IMPRESSION: 1. Tracheostomy tube in place. 2. Circumferential mass effect in the hypopharynx and supraglottic larynx as before. There is interval 1 cm erosive change in the anterior and superior portion of the left side of the thyroid cartilage which may imply progression. 3. Severe central canal stenosis in the spinal cord related to thickening and ossification of the anterior longitudinal ligament. This is unchanged. Electronically Signed by Kyler Pollock MD 08/14/2019 05:17 P
== END ==
LOC: M RAD 10:44
PROVIDERS: ATTEND Otolaryngology
DX: C13.9 Malignant neoplasm of hypopharynx, unspecified (principal)
CPT/HCPCS: 70491; Q9967

== ENCOUNTER 2019-08-15 09:30 | Outpatient (RCR) | payer MEDICARE, BC ==
[~2019-08-15 09:30] MED LIST changes: -ISOVUE-370 76% 100ML VIAL (Q9967) As Ordered ONE
== END 2019-08-21 | disposition home or self-care (01) ==
LOC: M ST 09:30
PROVIDERS: ATTEND Internal Medicine Hematology & Oncology
DX: C13.9 Malignant neoplasm of hypopharynx, unspecified (principal); R49.8 Other voice and resonance disorders; Z44.8 Encounter for fitting and adjustment of other external prosthetic devices

== ENCOUNTER → 2019-08-31 | Outpatient (REF) | payer MEDICARE, BC | LOC: M SFHCPLAZ 15:14 | PROVIDERS: ATTEND Internal Medicine Infectious Disease | DX: M87.30 Other secondary osteonecrosis, unspecified bone (principal) | CPT/HCPCS: 87070; 87077; 87186; 87205; G0463 ==

== ENCOUNTER 2019-09-11 09:45 | Outpatient (RCR) | payer MEDICARE, BC | END 2019-09-21 | LOC: M ST 09:45 | PROVIDERS: ATTEND Internal Medicine Hematology & Oncology | DX: R49.0 Dysphonia (principal); C13.9 Malignant neoplasm of hypopharynx, unspecified ==

== ENCOUNTER → 2019-09-22 | Outpatient (CLI) | payer MEDICARE, BC ==
[2019-09-22 13:32] LABS: BLOOD UREA NITROGEN 13 MG/DL (7-18); CALCIUM LEVEL 9.7 MG/DL (8.8-10.2); CARBON DIOXIDE LEVEL 32 MEQ/L (21-32); CHLORIDE LEVEL 102 MEQ/L (98-107); CREATININE FOR GFR 0.88 MG/DL (0.70-1.30); FREE T4 0.98 NG/DL (0.76-1.46); GLOMERULAR FILTRATION RATE > 60.0 (>49); GLUCOSE, FASTING 190 MG/DL (70-100); POTASSIUM SERUM 4.6 MEQ/L (3.5-5.1); SODIUM LEVEL 138 MEQ/L (136-145)
[2019-09-22 14:18] LABS: HEMOGLOBIN A1c 10.3 %
== END ==
LOC: M LAB 12:07
PROVIDERS: ATTEND Family Medicine
DX: E11.21 Type 2 diabetes mellitus with diabetic nephropathy (principal); E03.8 Other specified hypothyroidism

== ENCOUNTER → 2019-12-19 | Outpatient (CLI) | payer MEDICARE, BC ==
[~2019-12-19] MED LIST changes: +ACIDCAP PO; +AMOX875T2; +BACT800T5 PO
[2019-12-19 10:15] LABS: HEMATOCRIT 43.5 % (42.0-52.0); HEMOGLOBIN 14.3 g/dl (13.5-17.5); MEAN CORPUSCULAR HEMOGLOBIN 29.4 pg (27.0-33.0); MEAN CORPUSCULAR HGB CONC 32.9 g/dl (32.0-36.5); MEAN CORPUSCULAR VOLUME 89.5 fl (80.0-96.0); PLATELET COUNT, AUTOMATED 226 10^3/uL (150-450); RED BLOOD COUNT 4.86 10^6/uL (4.30-6.10); WHITE BLOOD COUNT 7.5 10^3/uL (4.0-10.0)
[2019-12-19 10:45] LABS: HEMOGLOBIN A1c 9.8 %
[2019-12-19 10:56] LABS: ALBUMIN 3.6 GM/DL (3.2-5.2); ALT/SGPT 20 U/L (12-78); BILIRUBIN,TOTAL 0.5 MG/DL (0.2-1.0); BLOOD UREA NITROGEN 11 MG/DL (7-18); CALCIUM LEVEL 8.8 MG/DL (8.8-10.2); CARBON DIOXIDE LEVEL 32 MEQ/L (21-32); CHLORIDE LEVEL 103 MEQ/L (98-107); CHOLESTEROL LEVEL 112 MG/DL (<200); CHOLESTEROL RISK RATIO 3.294 (<5); CREATININE FOR GFR 0.73 MG/DL (0.70-1.30); FREE T4 1.04 NG/DL (0.76-1.46); GLOMERULAR FILTRATION RATE > 60.0 (>49); GLUCOSE, FASTING 166 MG/DL (70-100); HDL CHOLESTEROL 34 MG/DL (>40); LDL CHOLESTEROL 62 MG/DL (<100); NON-HDL-C 78 MG/DL; POTASSIUM SERUM 4.3 MEQ/L (3.5-5.1); SODIUM LEVEL 138 MEQ/L (136-145); TOTAL PROTEIN 6.3 GM/DL (6.4-8.2); TRIGLYCERIDES LEVEL 79 MG/DL (<150)
[2019-12-19 10:57] LABS: VITAMIN B12 LEVEL 757 PG/ML
[2019-12-19 10:59] LABS: FOLATE 20.8 NG/ML
== END ==
LOC: M LAB 09:27
PROVIDERS: ATTEND Family Medicine
DX: E11.21 Type 2 diabetes mellitus with diabetic nephropathy (principal); J04.10 Acute tracheitis without obstruction; G62.0 Drug-induced polyneuropathy

== ENCOUNTER → 2019-12-26 | Outpatient (CLI) | payer MEDICARE, BC ==
[~2019-12-26] MED LIST changes: -LIDO1SOL8 PO; +LIDO2SOL17 PO
--- NOTE | 2019-12-26 19:12 | REP ---
PET/CT: History: Monitoring hypopharyngeal carcinoma. Status post tracheostomy and PEG tube placement, chemoradiation therapy, complicated by chondronecrosis. Comparison: CT study of the neck November 01, 2019. Comparison PET-CT October 25, 2018, and May 04, 2018. TECHNIQUE: 45 minutes following the intravenous injection of a 7.73 mCi dose of F-18 FDG, three-dimensional PET scintigraphy is acquired from the skull base to the proximal thighs. Triplanar noncontrast CT scanning is acquired through the same anatomic range for attenuation correction, and image registration with scan parameters optimized to minimize radiation exposure to the patient. PET scintigraphy and CT datasets were fused and displayed on a workstation with multiplanar and projection display capability. PET/CT Findings: There is hypermetabolic uptake in the soft tissue density seen on neck CT images at the level of the thyroid cartilage, above the tracheostomy. Maximum standard uptake value here is 8.45. There is considerable thyroid cartilage erosion. This is a new abnormality since the October 25, 2018 study. There is no evidence of hypermetabolic adenopathy. The supraglottic activity and cartilage erosion must be considered suspicious for recurrent disease. A small left pleural effusion with pleural thickening is again noted. There is some visible FDG accumulation in the pleural thickening, maximum standard uptake value 3.15. No pulmonary parenchymal hypermetabolic uptake is seen. The amount of pleural fluid is less than was visible and October 25, 2018 although the parietal and visceral pleural thickening are a new finding compared to that prior PET-CT. In the abdomen and pelvis, there is no abnormal hypermetabolic uptake. No abnormal skeletal uptake is seen. Impression: There is mass effect and hypermetabolic uptake in the supraglottic larynx with thyroid cartilage erosion as a new finding compared with the prior PET-CT study. Recurrent malignancy cannot be excluded. There is chronic left pleural effusion with some pleural thickening showing minimally increased uptake. This may be inflammatory and is nonspecific. No other abnormal hypermetabolic uptake. Electronically Signed by Kyler Pollock MD 12/26/2019 07:41 P
== END ==
LOC: M PLARAD 10:21
PROVIDERS: ATTEND Otolaryngology
DX: C13.9 Malignant neoplasm of hypopharynx, unspecified (principal); J90 Pleural effusion, not elsewhere classified; R93.3 Abnormal findings on diagnostic imaging of other parts of digestive tract; E07.9 Disorder of thyroid, unspecified
CPT/HCPCS: 78815; A9552

== ENCOUNTER → 2020-04-08 | Outpatient (CLI) | payer MEDICARE, BC ==
[2020-04-08 09:40] LABS: BLOOD UREA NITROGEN 13 MG/DL (7-18); CALCIUM LEVEL 8.8 MG/DL (8.8-10.2); CARBON DIOXIDE LEVEL 32 MEQ/L (21-32); CHLORIDE LEVEL 103 MEQ/L (98-107); CREATININE FOR GFR 0.76 MG/DL (0.70-1.30); FREE T4 1.06 NG/DL (0.76-1.46); GLOMERULAR FILTRATION RATE > 60.0 (>49); GLUCOSE, FASTING 149 MG/DL (70-100); POTASSIUM SERUM 4.3 MEQ/L (3.5-5.1); SODIUM LEVEL 141 MEQ/L (136-145)
[2020-04-08 10:18] LABS: HEMOGLOBIN A1c 9.8 %
== END ==
LOC: M LAB 08:30
PROVIDERS: ATTEND Family Medicine
DX: E11.21 Type 2 diabetes mellitus with diabetic nephropathy (principal); E03.8 Other specified hypothyroidism

== ENCOUNTER → 2020-08-13 | Outpatient (REF) | payer MEDICARE, BC | LOC: M SFHCPLAZ 17:14 | PROVIDERS: ATTEND Internal Medicine Infectious Disease | DX: J42 Unspecified chronic bronchitis (principal) ==

== ENCOUNTER → 2020-10-14 | Outpatient (CLI) | payer MEDICARE, BC ==
[2020-10-14 12:18] LABS: BLOOD UREA NITROGEN 13 MG/DL (7-18); CARBON DIOXIDE LEVEL 31 MEQ/L (21-32); CHLORIDE LEVEL 103 MEQ/L (98-107); CREATININE FOR GFR 0.75 MG/DL (0.70-1.30); GLOMERULAR FILTRATION RATE > 60.0 (>49); GLUCOSE, FASTING 154 MG/DL (70-100); POTASSIUM SERUM 4.7 MEQ/L (3.5-5.1); SODIUM LEVEL 139 MEQ/L (136-145)
[2020-10-14 14:16] LABS: HEMOGLOBIN A1c 9.1 %
== END ==
LOC: M LAB 10:34
PROVIDERS: ATTEND Family Medicine
DX: E11.9 Type 2 diabetes mellitus without complications (principal)

== ENCOUNTER → 2021-01-14 | Outpatient (CLI) | payer MEDICARE, BC ==
[2021-01-14 09:57] LABS: BLOOD UREA NITROGEN 12 MG/DL (7-18); CALCIUM LEVEL 9.1 MG/DL (8.8-10.2); CARBON DIOXIDE LEVEL 33 MEQ/L (21-32); CHLORIDE LEVEL 102 MEQ/L (98-107); CREATININE FOR GFR 0.77 MG/DL (0.70-1.30); FREE T4 1.36 NG/DL (0.76-1.46); GLOMERULAR FILTRATION RATE > 60.0 (>49); GLUCOSE, FASTING 119 MG/DL (70-100); POTASSIUM SERUM 4.2 MEQ/L (3.5-5.1); SODIUM LEVEL 140 MEQ/L (136-145)
[2021-01-14 10:15] LABS: HEMOGLOBIN A1c 8.5 %
== END ==
LOC: M LAB 08:51
PROVIDERS: ATTEND Family Medicine
DX: E11.21 Type 2 diabetes mellitus with diabetic nephropathy (principal); E03.8 Other specified hypothyroidism

== ENCOUNTER → 2021-04-17 | Outpatient (CLI) | payer MEDICARE, BC ==
[~2021-04-17] MED LIST changes: +BACTDSTA PO; -SULF1TAB93 PO
[2021-04-17 10:52] LABS: BLOOD UREA NITROGEN 15 MG/DL (7-18); CALCIUM LEVEL 9.2 MG/DL (8.8-10.2); CARBON DIOXIDE LEVEL 33 MEQ/L (21-32); CHLORIDE LEVEL 105 MEQ/L (98-107); GLOMERULAR FILTRATION RATE > 60.0 (>49); GLUCOSE, FASTING 117 MG/DL (70-100); POTASSIUM SERUM 4.3 MEQ/L (3.5-5.1); SODIUM LEVEL 139 MEQ/L (136-145)
[2021-04-17 11:02] LABS: CREATININE, URINE 33.8 MG/DL; MALB URINE SIEMENS 11.6 MG/L; MAU/CREAT RATIO 34.3 MCG/MG (0.0-30.0)
[2021-04-17 11:38] LABS: HEMOGLOBIN A1c 8.6 %
== END ==
LOC: M LAB 09:50
PROVIDERS: ATTEND Family Medicine
DX: E11.21 Type 2 diabetes mellitus with diabetic nephropathy (principal)

== ENCOUNTER → 2021-07-29 | Outpatient (CLI) | payer MEDICARE, BC ==
[2021-07-29 10:43] LABS: HEMATOCRIT 47.4 % (42.0-52.0); HEMOGLOBIN 15.5 g/dl (13.5-17.5); MEAN CORPUSCULAR HEMOGLOBIN 29.6 pg (27.0-33.0); MEAN CORPUSCULAR HGB CONC 32.7 g/dl (32.0-36.5); MEAN CORPUSCULAR VOLUME 90.5 fl (80.0-96.0); PLATELET COUNT, AUTOMATED 257 10^3/uL (150-450); RED BLOOD COUNT 5.24 10^6/uL (4.30-6.10)
[2021-07-29 10:48] LABS: HEMOGLOBIN A1c 9.5 %
[2021-07-29 11:02] LABS: ALBUMIN 3.2 GM/DL (3.2-5.2); ALT/SGPT 22 U/L (12-78); BILIRUBIN,TOTAL 0.5 MG/DL (0.2-1.0); BLOOD UREA NITROGEN 12 MG/DL (7-18); CALCIUM LEVEL 8.9 MG/DL (8.8-10.2); CARBON DIOXIDE LEVEL 34 MEQ/L (21-32); CHLORIDE LEVEL 103 MEQ/L (98-107); FREE T4 0.92 NG/DL (0.76-1.46); GLOMERULAR FILTRATION RATE > 60.0 (>42); GLUCOSE, FASTING 147 MG/DL (70-100); NT-PRO BNP 1013 PG/ML (<125); POTASSIUM SERUM 4.2 MEQ/L (3.5-5.1); SODIUM LEVEL 140 MEQ/L (136-145); TOTAL PROTEIN 6.6 GM/DL (6.4-8.2)
== END ==
LOC: M LAB 08:53
PROVIDERS: ATTEND Family Medicine
DX: L13.9 Bullous disorder, unspecified (principal); R60.0 Localized edema; E11.21 Type 2 diabetes mellitus with diabetic nephropathy; E03.8 Other specified hypothyroidism; I50.22 Chronic systolic (congestive) heart failure

== ENCOUNTER → 2021-08-18 | Outpatient (CLI) | payer MEDICARE, BC ==
--- NOTE | 2021-08-18 11:59 | REP ---
INDICATION: MALIGNANT NEOPLASM OF HYPOPHARYNX. COMPARISON: Comparison PET-CT studies December 26, 2019, October 25, 2018, and May 04, 2018. TECHNIQUE: Forty-seven minutes following the intravenous injection of a 8.86 mCi dose of F-18 FDG, three-dimensional PET scintigraphy is acquired from the skull base to the proximal thighs. Triplanar noncontrast CT scanning is acquired through the same anatomic range for attenuation correction, and image registration with scan parameters optimized to minimize radiation exposure to the patient. PET scintigraphy and CT datasets were fused and displayed on a workstation with multiplanar and projection display capability. FINDINGS: There is improvement noted in the supraglottic larynx and hypopharynx region of today's PET-CT. There is a vague persistent fullness with mildly increased metabolic uptake, maximum standard uptake value 4.96 today. Previously 8.45. There is nonspecific bilateral symmetric sternocleidomastoid skeletal muscle uptake and some of this may be post radiation change. No apparent hypermetabolic adenopathy in the neck. However, in the thorax, there is a mildly hypermetabolic pretracheal lymph node visible today with maximum standard uptake value 3.77. This node measures 1.1 cm in short axis dimension. There is a small 1 cm node in the subcarinal region with maximum standard uptake value 3.19. No other hypermetabolic betty uptake is seen. There is small amount of left pleural fluid and chronic pleural thickening and atelectasis is seen in the left lower lobe with mildly increased uptake unchanged from the prior study, maximum SUV value 2.70. This is nonspecific as before. Likely inflammatory. There is a neurostimulator device in the left flank along the lower chest wall. No abnormal hypermetabolic uptake is seen in the abdomen or pelvis. IMPRESSION: There is some residual fullness and mildly increased uptake in the hypopharynx although this is improved from the prior study from 26 December 2019. There are mildly hypermetabolic mediastinal lymph nodes as above. <Electronically signed by Jabari Pollock > 08/18/21 1716
== END ==
LOC: M PLARAD 08:49
PROVIDERS: ATTEND Otolaryngology
DX: C13.8 Malignant neoplasm of overlapping sites of hypopharynx (principal)
CPT/HCPCS: 78815; A9552

== ENCOUNTER → 2021-11-11 | Outpatient (REF) | payer MEDICARE, BC | LOC: M LAB REF 15:59 | PROVIDERS: ATTEND Physician Assistant | DX: C44.02 Squamous cell carcinoma of skin of lip (principal) | CPT/HCPCS: 88305; G0463 ==

== ENCOUNTER → 2021-11-26 | Outpatient (CLI) | payer MEDICARE, BC ==
[2021-11-26 11:14] LABS: BLOOD UREA NITROGEN 19 MG/DL (7-18); CALCIUM LEVEL 9.3 MG/DL (8.8-10.2); CARBON DIOXIDE LEVEL 35 MEQ/L (21-32); CHLORIDE LEVEL 106 MEQ/L (98-107); CREATININE FOR GFR 0.82 MG/DL (0.70-1.30); FREE T4 1.19 NG/DL (0.76-1.46); GLOMERULAR FILTRATION RATE > 60.0 (>42); GLUCOSE, FASTING 76 MG/DL (70-100); POTASSIUM SERUM 5.2 MEQ/L (3.5-5.1); SODIUM LEVEL 143 MEQ/L (136-145)
== END ==
LOC: M LAB 09:29
PROVIDERS: ATTEND Family Medicine
DX: E11.21 Type 2 diabetes mellitus with diabetic nephropathy (principal); E03.8 Other specified hypothyroidism

== ENCOUNTER → 2022-03-04 | Outpatient (REF) | payer MEDICARE, BC ==
[2022-03-04 13:40] LABS: BLOOD UREA NITROGEN 19 MG/DL (7-18); CALCIUM LEVEL 9.5 MG/DL (8.8-10.2); CARBON DIOXIDE LEVEL 33 MEQ/L (21-32); CHLORIDE LEVEL 101 MEQ/L (98-107); CREATININE FOR GFR 0.81 MG/DL (0.70-1.30); GLOMERULAR FILTRATION RATE > 60.0 (>42); GLUCOSE, FASTING 166 MG/DL (70-100); POTASSIUM SERUM 4.1 MEQ/L (3.5-5.1); SODIUM LEVEL 139 MEQ/L (136-145)
[2022-03-04 14:53] LABS: HEMOGLOBIN A1c 8.6 %
== END ==
LOC: M SFHCADAM 12:37
PROVIDERS: ATTEND Family Medicine
DX: E11.21 Type 2 diabetes mellitus with diabetic nephropathy (principal)

== ENCOUNTER → 2022-05-30 | Outpatient (CLI) | payer MEDICARE, BC ==
[2022-05-30 10:13] LABS: HEMATOCRIT 50.6 % (42.0-52.0); HEMOGLOBIN 16.6 g/dl (13.5-17.5); MEAN CORPUSCULAR HEMOGLOBIN 30.1 pg (27.0-33.0); MEAN CORPUSCULAR HGB CONC 32.8 g/dl (32.0-36.5); MEAN CORPUSCULAR VOLUME 91.7 fl (80.0-96.0); PLATELET COUNT, AUTOMATED 230 10^3/uL (150-450); RED BLOOD COUNT 5.52 10^6/uL (4.30-6.10); WHITE BLOOD COUNT 8.8 10^3/uL (4.0-10.0)
[2022-05-30 10:37] LABS: HEMOGLOBIN A1c 8.9 %
[2022-05-30 10:53] LABS: ALT/SGPT 23 U/L (12-78); BILIRUBIN,TOTAL 0.7 MG/DL (0.2-1.0); BLOOD UREA NITROGEN 16 MG/DL (7-18); CARBON DIOXIDE LEVEL 35 MEQ/L (21-32); CHLORIDE LEVEL 103 MEQ/L (98-107); CREATININE FOR GFR 0.91 MG/DL (0.70-1.30); GLOMERULAR FILTRATION RATE > 60.0 (>42); GLUCOSE, FASTING 100 MG/DL (70-100); SODIUM LEVEL 140 MEQ/L (136-145)
[2022-05-30 10:54] LABS: ALBUMIN 3.7 GM/DL (3.2-5.2); CHOLESTEROL LEVEL 122 MG/DL (<200); CHOLESTEROL RISK RATIO 3.297 (<5); FREE T4 1.18 NG/DL (0.76-1.46); HDL CHOLESTEROL 37 MG/DL (>40); LDL CHOLESTEROL 68 MG/DL (<100); NON-HDL-C 85 MG/DL; NT-PRO BNP 1723 PG/ML (<125); TOTAL PROTEIN 6.9 GM/DL (6.4-8.2); TRIGLYCERIDES LEVEL 87 MG/DL (<150)
[2022-05-30 10:57] LABS: CREATININE, URINE 98.2 MG/DL; MALB URINE SIEMENS 11.8 MG/L
== END ==
LOC: M LAB 08:54
PROVIDERS: ATTEND Family Medicine
DX: E11.21 Type 2 diabetes mellitus with diabetic nephropathy (principal); E78.2 Mixed hyperlipidemia; F43.23 Adjustment disorder with mixed anxiety and depressed mood; I50.22 Chronic systolic (congestive) heart failure

== ENCOUNTER → 2022-12-28 | Outpatient (CLI) | payer MEDICARE, BC ==
[~2022-12-28] MED LIST changes: +ACID1TAB PO; +ALB2.5NEB NEB; +ASCO500T PO; +CARV6.25 PO; +D3 H400T PO; +FURO40TA2 PO; +INSUHUMDS SC; +LIDO15SO4 PO; -LIDO2SOL17 PO; +MAGN400T2 PO; +NITR4TASL SL; +SENN8.6T28 PO; +SYNT125T PO; +VALS1TAB66 PO; +VITMTA PO
[2022-12-28 12:44] LABS: HEMATOCRIT 49.6 % (42.0-52.0); HEMOGLOBIN 16.4 g/dl (13.5-17.5); MEAN CORPUSCULAR HEMOGLOBIN 30.8 pg (27.0-33.0); MEAN CORPUSCULAR HGB CONC 33.1 g/dl (32.0-36.5); MEAN CORPUSCULAR VOLUME 93.2 fl (80.0-96.0); PLATELET COUNT, AUTOMATED 248 10^3/uL (150-450); RED BLOOD COUNT 5.32 10^6/uL (4.30-6.10)
[2022-12-28 12:56] LABS: HEMOGLOBIN A1c 8.6 % (4.0-6.0)
[2022-12-28 13:20] LABS: ALBUMIN 3.9 G/DL (3.2-5.2); ALKALINE PHOSPHATASE 106 U/L (46-116); ALT/SGPT 21 U/L (7.0-40); AST/SGOT 24 U/L (<34); BILIRUBIN,TOTAL 0.8 MG/DL (0.3-1.2); BLOOD UREA NITROGEN 19 MG/DL (9-23); CALCIUM LEVEL 9.1 MG/DL (8.3-10.6); CARBON DIOXIDE LEVEL 31 MMOL/L (20-31); CHLORIDE LEVEL 99 MMOL/L (98-107); CHOLESTEROL LEVEL 124 MG/DL (<200); CHOLESTEROL RISK RATIO 2.98 (<5); CREATININE FOR GFR 0.87 MG/DL (0.70-1.30); FREE T4 1.53 NG/DL (0.89-1.76); GLOMERULAR FILTRATION RATE > 60.0 (>42); GLUCOSE, FASTING 243 MG/DL (74-106); HDL CHOLESTEROL 41.6 MG/DL (>40); LDL CHOLESTEROL 68.6 MG/DL (<100); NON-HDL-C 82 MG/DL; POTASSIUM SERUM 4.6 MMOL/L (3.5-5.1); SODIUM LEVEL 136 MMOL/L (136-145); THYROID STIMULATING HORMONE 3.241 uIU/ML (0.55-4.78); TOTAL PROTEIN 6.8 G/DL (5.7-8.2); TRIGLYCERIDES LEVEL 69 MG/DL (<150)
== END ==
LOC: M LAB 11:42
PROVIDERS: ATTEND Family Medicine
DX: E11.21 Type 2 diabetes mellitus with diabetic nephropathy (principal); R60.0 Localized edema; I11.0 Hypertensive heart disease with heart failure; I50.22 Chronic systolic (congestive) heart failure; E03.8 Other specified hypothyroidism; E78.2 Mixed hyperlipidemia

== ENCOUNTER 2022-12-29 02:40 | Inpatient (IN) | payer MEDICARE, BC ==
[~2022-12-29] VITALS: Ht 180.3 cm; Wt 83.7 kg
[~2022-12-29 02:40] MED LIST changes: -ACID1TAB PO; -ALB2.5NEB NEB; -ASCO500T PO; -CARV6.25 PO; -D3 H400T PO; -FURO40TA2 PO; -INSUHUMDS SC; -MAGN400T2 PO; -NITR4TASL SL; -SENN8.6T28 PO; -SYNT125T PO; -VALS1TAB66 PO; -VITMTA PO
[2022-12-29] MEDS ORDERED: ISOVUE-370 76% 100ML VIAL As Ordered ONE (03:21)
[2022-12-29 03:55] VITALS: O2SAT 97
[2022-12-29] MEDS ORDERED: LEVOTHYROXINE 125MCG TABLET (0.125MG) PO SCH (06:00)
[2022-12-29] MEDS ORDERED: VITMTA PO (06:43)
[2022-12-29] MEDS ORDERED: INSUHUMDS SC (06:43)
[2022-12-29] MEDS ORDERED: ACID1TAB PO (06:43)
[2022-12-29] MEDS ORDERED: CARV6.25 PO (06:43)
[2022-12-29] MEDS ORDERED: SYNT125T PO (06:43)
[2022-12-29] MEDS ORDERED: D3 H400T PO (06:43)
[2022-12-29] MEDS ORDERED: ASCO500T PO (06:43)
[2022-12-29] MEDS ORDERED: NITR4TASL SL (06:43)
[2022-12-29] MEDS ORDERED: MAGN400T2 PO (06:43)
[2022-12-29] MEDS ORDERED: FURO40TA2 PO (06:45)
[2022-12-29] MEDS ORDERED: VALS1TAB66 PO (06:45)
[2022-12-29] MEDS ORDERED: SENN8.6T28 PO (06:45)
[2022-12-29] MEDS ORDERED: ALBUTEROL SULFATE 2.5MG/0.5ML INH NEB SOLN NEB PRN ×2 (06:50→07:25)
[2022-12-29] MEDS ORDERED: HOME MED LIST COMPLETE! XX SCH (06:50)
[2022-12-29] MEDS ORDERED: LORazepam 2 MG/ML 1ML VIAL IV STA (07:06)
[2022-12-29] MEDS: IPRATROPIUM 0.5MG/ALBUTEROL 2.5MG INH SOL UD 3ML (DUONEB) NEB SCH ×3 (08:00→15:36)
[2022-12-29] MEDS ORDERED: IPRATROPIUM 0.5MG/ALBUTEROL 2.5MG INH SOL UD 3ML (DUONEB) NEB SCH (08:00)
[2022-12-29 08:06] LABS: HEMATOCRIT 44.1 % (42.0-52.0); MEAN CORPUSCULAR HEMOGLOBIN 31.6 pg (27.0-33.0); PLATELET COUNT, AUTOMATED 206 10^3/uL (150-450); RED BLOOD COUNT 4.74 10^6/uL (4.30-6.10); WHITE BLOOD COUNT 8.7 10^3/uL (4.0-10.0)
[2022-12-29 08:17] LABS: INR 1.08; PROTHROMBIN TIME 14.2 SECONDS (12.5-14.5)
[2022-12-29 08:18] LABS: PARTIAL THROMBOPLASTIN TIME 29.9 SECONDS (24.8-34.2)
[2022-12-29 08:32] LABS: ALBUMIN 3.6 G/DL (3.2-5.2); ALKALINE PHOSPHATASE 87 U/L (46-116); ALT/SGPT 16 U/L (7.0-40); AST/SGOT 18 U/L (<34); BILIRUBIN,TOTAL 0.7 MG/DL (0.3-1.2); BLOOD UREA NITROGEN 18 MG/DL (9-23); CALCIUM LEVEL 8.3 MG/DL (8.3-10.6); CARBON DIOXIDE LEVEL 30 MMOL/L (20-31); CHLORIDE LEVEL 101 MMOL/L (98-107); GLOMERULAR FILTRATION RATE > 60.0 (>42); GLUCOSE, FASTING 266 MG/DL (74-106); POTASSIUM SERUM 4.4 MMOL/L (3.5-5.1); SODIUM LEVEL 132 MMOL/L (136-145)
[2022-12-29 08:39] LABS: RSV AMPLIFICATION NEGATIVE (NEGATIVE)
[2022-12-29] MEDS ORDERED: LEVEMIR (INSULIN DETEMIR) 1 UNITS/0.01ML SC SCH ×2 (09:00→21:00)
[2022-12-29] MEDS ORDERED: DEXTROSE 50% 50ML SYRINGE IV PRN (10:20)
[2022-12-29] MEDS ORDERED: GLUCOSE 4GM CHEW TABLET PO PRN (10:20)
[2022-12-29] MEDS ORDERED: GLUCAGON INJ 1MG VIAL SC PRN (10:20)
[2022-12-29] MEDS ORDERED: INSULIN LISPRO (NovoLOG) PER UNIT SC SCH ×2 (12:00→21:00)
[2022-12-29] MEDS ORDERED: THROMBIN 5,000 UNITS VIAL As Ordered ONE (13:32)
[2022-12-29] MEDS ORDERED: EPINEPHrine 1MG/10ML SYRINGE 1.5IN As Ordered ONE (13:32)
[2022-12-29] MEDS ORDERED: CETACAINE SPRAY 5GM As Ordered ONE (13:32)
[2022-12-29] MEDS ORDERED: LIDOCAINE 1% SDV 30ML VIAL As Ordered ONE (13:53)
[2022-12-29] MEDS ORDERED: fentaNYL 100 MCG/2 ML INJECTION As Ordered ONE (14:10)
[2022-12-29] MEDS ORDERED: PHENYLephrine 500MCG 5ML (100MCG/ML) SYRINGE As Ordered ONE ×2 (14:10→14:17)
[2022-12-29] MEDS ORDERED: LIDOCAINE 2% 100MG/5ML SDV (FOR ANES.) As Ordered ONE (14:10)
[2022-12-29] MEDS ORDERED: propofoL 200 MG/20 ML VIAL As Ordered ONE (14:10)
[2022-12-29] MEDS ORDERED: MIDAZOLAM INJ 2MG/2ML VIAL As Ordered ONE (14:10)
[2022-12-29] MEDS ORDERED: SENNA 8.6 MG TAB (SENOKOT) PO PRN (15:15)
[2022-12-29] MEDS ORDERED: ALB2.5NEB NEB (17:08)
[2022-12-29 17:25] VITALS: BP 96/52
[2022-12-29] MEDS ORDERED: LACTOBACILLUS ACIDOPHILUS CAP (BACID) PO SCH (18:00)
[2022-12-29] MEDS ORDERED: MAGNESIUM OXIDE 400MG TAB (MAG-OX) PO SCH (21:00)
[2022-12-29] MEDS ORDERED: ASPIRIN 81MG CHEW TABLET PO SCH (21:00)
[2022-12-29] MEDS ORDERED: MULTIVITAMINS/MINERALS THERAP 1 TAB PO SCH (21:00)
[2022-12-29] MEDS ORDERED: CARVedilol 6.25 MG TAB PO SCH (21:00)
[2022-12-29] MEDS ORDERED: VALSARTAN 80 MG TAB (DIOVAN) PO SCH (21:00)
[2022-12-29] MEDS ORDERED: FUROSEMIDE 40 MG TAB PO SCH (21:00)
[2022-12-29] MEDS ORDERED: ASCORBIC ACID 500 MG TAB PO SCH (21:00)
[2022-12-30] MEDS ORDERED: ENOXAPARIN 40MG/0.4ML SYRINGE (J1650 PER 10MG) SC SCH (09:00)
== END 2022-12-29 17:30 | disposition home or self-care (01) | DRG 206 ==
LOC: M ED 02:40 → M ED INP 02:41 → OBSVTOIN 07:22
PROVIDERS: ADMIT Internal Medicine; ATTEND Internal Medicine
PROC: 0B9G8ZX Drainage of Left Upper Lung Lobe, Via Natural or Artificial Opening Endoscopic, Diagnostic (ICD-10-PCS; principal; 2022-12-29 13:45)
DX: J98.8 Other specified respiratory disorders (principal); I50.22 Chronic systolic (congestive) heart failure; Z93.0 Tracheostomy status; J96.10 Chronic respiratory failure, unspecified whether with hypoxia or hypercapnia; I25.10 Atherosclerotic heart disease of native coronary artery without angina pectoris; C32.9 Malignant neoplasm of larynx, unspecified; E03.9 Hypothyroidism, unspecified; E11.51 Type 2 diabetes mellitus with diabetic peripheral angiopathy without gangrene; I73.9 Peripheral vascular disease, unspecified; R13.10 Dysphagia, unspecified; E78.5 Hyperlipidemia, unspecified; Z20.822 Contact with and (suspected) exposure to COVID-19; Z79.82 Long term (current) use of aspirin; Z79.4 Long term (current) use of insulin; Z79.890 Hormone replacement therapy; Z79.899 Other long term (current) drug therapy; Z88.1 Allergy status to other antibiotic agents; Z88.8 Allergy status to other drugs, medicaments and biological substances; Z91.030 Bee allergy status; Z92.3 Personal history of irradiation; I25.2 Old myocardial infarction; Z95.5 Presence of coronary angioplasty implant and graft; Z95.810 Presence of automatic (implantable) cardiac defibrillator; Z92.21 Personal history of antineoplastic chemotherapy; Z87.891 Personal history of nicotine dependence

== ENCOUNTER 2023-01-06 21:21 | Inpatient (IN) | payer MEDICARE, BC ==
[~2023-01-06] VITALS: Ht 182.9 cm; Wt 85.3 kg
[~2023-01-06 21:21] MED LIST changes: +ACID1TAB PO; +ALB2.5NEB NEB; +ASCO500T PO; +ASCORBIC ACID 500 MG TAB PO SCH; +CARV6.25 PO; +D3 H400T PO; +FURO40TA2 PO; +INSUHUMDS SC; +MAGN400T2 PO; +NITR4TASL SL; +SENN8.6T28 PO; +SYNT125T PO; +VALS1TAB66 PO; +VITMTA PO
[2023-01-06] MEDS ORDERED: LORazepam 2 MG/ML 1ML VIAL IV STA (21:34)
[2023-01-06] MEDS ORDERED: methylPREDNISolone 125MG 2ML VIAL IV ONE (21:35)
[2023-01-06] MEDS ORDERED: IPRATROPIUM 0.5MG/ALBUTEROL 2.5MG INH SOL UD 3ML (DUONEB) NEB PRN (21:35)
[2023-01-06 22:17] VITALS: O2SAT 98
[2023-01-06 22:18] LABS: BASO % 0.4 % (0.0-1.0); EOS % 0.4 % (0.0-3.0); HEMATOCRIT 47.8 % (42.0-52.0); HEMOGLOBIN 15.8 g/dl (13.5-17.5); LYMPH % 9.2 % (24.0-44.0); MEAN CORPUSCULAR HEMOGLOBIN 31.5 pg (27.0-33.0); MEAN CORPUSCULAR HGB CONC 33.1 g/dl (32.0-36.5); MEAN CORPUSCULAR VOLUME 95.4 fl (80.0-96.0); MONO # 0.9 10^3/uL (0.0-0.8); MONO % 8.2 % (2.0-8.0); NEUTROPHILS # 8.9 10^3/uL (1.5-8.5); NEUTROPHILS % 81.3 % (36.0-66.0); PLATELET COUNT, AUTOMATED 281 10^3/uL (150-450); RED BLOOD COUNT 5.01 10^6/uL (4.30-6.10)
[2023-01-06] MEDS ORDERED: NS 1,000 ML IV ONE (22:40)
[2023-01-07] VITALS (95 sets, daily range): BP systolic 84–186; BP diastolic 40–70
[2023-01-07 00:10] LABS: CK-MB VALUE MASS 2.8 NG/ML (<3.6)
[2023-01-07 00:19] LABS: ALKALINE PHOSPHATASE 87 U/L (46-116); ALT/SGPT 17 U/L (7.0-40); AST/SGOT 47 U/L (<34); BILIRUBIN,DIRECT 0.2 MG/DL (<0.4); BILIRUBIN,TOTAL 0.5 MG/DL (0.3-1.2); BLOOD UREA NITROGEN 25 MG/DL (9-23); CALCIUM LEVEL 7.6 MG/DL (8.3-10.6); CARBON DIOXIDE LEVEL 22 MMOL/L (20-31); CHLORIDE LEVEL 101 MMOL/L (98-107); CPK CREATINE PHOSPHOKINASE 115 U/L (46-171); CREATININE FOR GFR 1.09 MG/DL (0.70-1.30); GLOMERULAR FILTRATION RATE > 60.0 (>42); GLUCOSE, FASTING 370 MG/DL (74-106); MB/CK RELATIVE INDEX 2.43 (< OR =4); POTASSIUM SERUM 5.9 MMOL/L (3.5-5.1); SODIUM LEVEL 134 MMOL/L (136-145); TOTAL PROTEIN 5.3 G/DL (5.7-8.2)
[2023-01-07 01:02] LABS: CK-MB VALUE MASS 5.1 NG/ML (<3.6)
[2023-01-07 01:08] LABS: MB/CK RELATIVE INDEX 3.95 (< OR =4)
[2023-01-07] MEDS ORDERED: SENN8.6T58 PO (01:58)
[2023-01-07] MEDS ORDERED: BACT800T5 PO (01:58)
[2023-01-07] MEDS ORDERED: ALBU2.5V10 INH (01:58)
[2023-01-07] MEDS ORDERED: HOME MED LIST COMPLETE! XX SCH (02:00)
[2023-01-07] MEDS ORDERED: ALBUTEROL SULFATE 2.5MG/0.5ML INH NEB SOLN INH PRN (02:05)
[2023-01-07] MEDS ORDERED: DEXTROSE 50% 50ML SYRINGE IV PRN (02:05)
[2023-01-07] MEDS ORDERED: GLUCAGON INJ 1MG VIAL SC PRN (02:05)
[2023-01-07] MEDS ORDERED: GLUCOSE 4GM CHEW TABLET PO PRN (02:05)
[2023-01-07] MEDS ORDERED: LIDOCAINE 1% MDV 20ML VIAL XX ONE (02:46)
[2023-01-07] MEDS ORDERED: NICOTINE 21MG/24HR 1 EA TRANSDERMAL TD PRN (02:55)
[2023-01-07] MEDS ORDERED: DOXYCYCLINE HYCLATE 100 MG in D5W MINI-BAG PLUS 100 ML IV SCH (03:00)
[2023-01-07] MEDS ORDERED: MIDAZOLAM INJ 2MG/2ML VIAL As Ordered ONE (03:37)
[2023-01-07] MEDS ORDERED: fentaNYL 100 MCG/2 ML INJECTION As Ordered ONE (03:38)
[2023-01-07] MEDS ORDERED: LIDOCAINE 1% MDV 20ML VIAL As Ordered ONE (03:40)
[2023-01-07] MEDS ORDERED: cefTRIAXone SOD 1 GM in D5W MINI-BAG PLUS 50 ML IV SCH (04:00)
[2023-01-07] MEDS: HEPARIN SOD (PORCINE) 5000UNITS/ML 1ML VIAL/SYRINGE SC SCH ×4 (06:00→21:55)
[2023-01-07] MEDS ORDERED: methylPREDNISolone 125MG 2ML VIAL IV ONE (06:25)
[2023-01-07] MEDS: LEVOTHYROXINE 125MCG TABLET (0.125MG) PO SCH (06:49)
[2023-01-07] MEDS: INSULIN LISPRO (NovoLOG) PER UNIT SC SCH ×3 (07:30→17:20)
[2023-01-07] MEDS ORDERED: LEVEMIR (INSULIN DETEMIR) 1 UNITS/0.01ML SC SCH ×2 (09:00→21:00)
[2023-01-07] MEDS ORDERED: SENNA 8.6 MG TAB (SENOKOT) PO SCH (09:00)
[2023-01-07] MEDS: CARVedilol 6.25 MG TAB PO SCH ×2 (10:08→20:47)
[2023-01-07] MEDS: FUROSEMIDE 40 MG TAB PO SCH ×2 (10:08→20:43)
[2023-01-07 11:54] LABS: HEMATOCRIT 44.3 % (42.0-52.0); HEMOGLOBIN 14.5 g/dl (13.5-17.5); MEAN CORPUSCULAR HEMOGLOBIN 31.6 pg (27.0-33.0); MEAN CORPUSCULAR HGB CONC 32.7 g/dl (32.0-36.5); MEAN CORPUSCULAR VOLUME 96.5 fl (80.0-96.0); PLATELET COUNT, AUTOMATED 260 10^3/uL (150-450); RED BLOOD COUNT 4.59 10^6/uL (4.30-6.10); WHITE BLOOD COUNT 6.4 10^3/uL (4.0-10.0)
[2023-01-07] MEDS: SODIUM CHLORIDE HYPERTONIC 3% 15ML NEB SOL INH SCH ×3 (12:00→19:29)
[2023-01-07] MEDS ORDERED: ALBUTEROL SULFATE 2.5MG/0.5ML INH NEB SOLN NEB PRN (12:00)
[2023-01-07] MEDS: ALBUTEROL SULFATE 2.5MG/0.5ML INH NEB SOLN NEB SCH ×3 (12:00→19:29)
[2023-01-07 13:19] LABS: BLOOD UREA NITROGEN 28 MG/DL (9-23); CALCIUM LEVEL 8.3 MG/DL (8.3-10.6); CARBON DIOXIDE LEVEL 24 MMOL/L (20-31); CHLORIDE LEVEL 98 MMOL/L (98-107); CREATININE FOR GFR 1.07 MG/DL (0.70-1.30); GLOMERULAR FILTRATION RATE > 60.0 (>42); GLUCOSE, FASTING 411 MG/DL (74-106); POTASSIUM SERUM 5.2 MMOL/L (3.5-5.1); SODIUM LEVEL 132 MMOL/L (136-145)
[2023-01-07] MEDS ORDERED: INSULIN LISPRO (NovoLOG) PER UNIT SC STA (13:23)
[2023-01-07] MEDS ORDERED: ASPIRIN 81MG CHEW TABLET PO SCH (21:00)
[2023-01-07] MEDS ORDERED: ASCORBIC ACID 500 MG TAB PO SCH (21:00)
[2023-01-07] MEDS ORDERED: VALSARTAN 80 MG TAB (DIOVAN) PO SCH (21:00)
[2023-01-07] MEDS ORDERED: INSULIN LISPRO (NovoLOG) PER UNIT SC SCH (21:00)
[2023-01-08] VITALS (8 sets, daily range): BP systolic 95–133; BP diastolic 48–65
[2023-01-08] MEDS: ALBUTEROL SULFATE 2.5MG/0.5ML INH NEB SOLN NEB SCH ×4 (03:36→11:23)
[2023-01-08] MEDS: SODIUM CHLORIDE HYPERTONIC 3% 15ML NEB SOL INH SCH ×4 (03:36→11:23)
[2023-01-08] MEDS: LEVOTHYROXINE 125MCG TABLET (0.125MG) PO SCH (05:05)
[2023-01-08 05:21] LABS: BASO % 0.4 % (0.0-1.0); EOS # 0.1 10^3/uL (0.0-0.5); EOS % 0.5 % (0.0-3.0); HEMATOCRIT 43.6 % (42.0-52.0); HEMOGLOBIN 14.5 g/dl (13.5-17.5); LYMPH % 9.3 % (24.0-44.0); MEAN CORPUSCULAR HEMOGLOBIN 31.5 pg (27.0-33.0); MEAN CORPUSCULAR HGB CONC 33.3 g/dl (32.0-36.5); MEAN CORPUSCULAR VOLUME 94.6 fl (80.0-96.0); MONO % 9.2 % (2.0-8.0); NEUTROPHILS # 8.9 10^3/uL (1.5-8.5); PLATELET COUNT, AUTOMATED 253 10^3/uL (150-450); RED BLOOD COUNT 4.61 10^6/uL (4.30-6.10); WHITE BLOOD COUNT 11.1 10^3/uL (4.0-10.0)
[2023-01-08 05:52] LABS: BLOOD UREA NITROGEN 34 MG/DL (9-23); CALCIUM LEVEL 8.6 MG/DL (8.3-10.6); CARBON DIOXIDE LEVEL 30 MMOL/L (20-31); CHLORIDE LEVEL 103 MMOL/L (98-107); CREATININE FOR GFR 0.97 MG/DL (0.70-1.30); GLOMERULAR FILTRATION RATE > 60.0 (>42); GLUCOSE, FASTING 63 MG/DL (74-106); POTASSIUM SERUM 4.6 MMOL/L (3.5-5.1); SODIUM LEVEL 139 MMOL/L (136-145)
[2023-01-08] MEDS: HEPARIN SOD (PORCINE) 5000UNITS/ML 1ML VIAL/SYRINGE SC SCH (06:00)
[2023-01-08] MEDS: INSULIN LISPRO (NovoLOG) PER UNIT SC SCH (07:30)
[2023-01-08] MEDS ORDERED: SENNA 8.6 MG TAB (SENOKOT) PO SCH (09:00)
[2023-01-08] MEDS: CARVedilol 6.25 MG TAB PO SCH (09:59)
[2023-01-08] MEDS: FUROSEMIDE 40 MG TAB PO SCH (09:59)
[2023-01-08] MEDS ORDERED: CEFD300C41 PO (10:49)
[2023-01-08] MEDS ORDERED: ATORVASTATIN 10 MG TAB PO SCH (21:00)
== END 2023-01-08 12:50 | disposition home or self-care (01) | DRG 206 ==
LOC: M ED 21:21 → M ED INP 01-07 01:23 → M ICU 01-07 02:58
PROVIDERS: ADMIT Internal Medicine; ATTEND Internal Medicine
PROC: 0B9J8ZX Drainage of Left Lower Lung Lobe, Via Natural or Artificial Opening Endoscopic, Diagnostic (ICD-10-PCS; principal; 2023-01-07)
PROC: 0B9F8ZX Drainage of Right Lower Lung Lobe, Via Natural or Artificial Opening Endoscopic, Diagnostic (ICD-10-PCS; 2023-01-07)
DX: J98.8 Other specified respiratory disorders (principal); I50.22 Chronic systolic (congestive) heart failure; Z93.0 Tracheostomy status; E03.9 Hypothyroidism, unspecified; I25.10 Atherosclerotic heart disease of native coronary artery without angina pectoris; Z95.5 Presence of coronary angioplasty implant and graft; I11.0 Hypertensive heart disease with heart failure; I25.2 Old myocardial infarction; E11.51 Type 2 diabetes mellitus with diabetic peripheral angiopathy without gangrene; E11.65 Type 2 diabetes mellitus with hyperglycemia; J96.11 Chronic respiratory failure with hypoxia; I73.9 Peripheral vascular disease, unspecified; F17.210 Nicotine dependence, cigarettes, uncomplicated; J90 Pleural effusion, not elsewhere classified; I16.0 Hypertensive urgency; K59.00 Constipation, unspecified; Z79.4 Long term (current) use of insulin; Z79.890 Hormone replacement therapy; Z95.810 Presence of automatic (implantable) cardiac defibrillator; Z79.82 Long term (current) use of aspirin; Z79.899 Other long term (current) drug therapy; Z88.1 Allergy status to other antibiotic agents; Z88.8 Allergy status to other drugs, medicaments and biological substances; Z91.030 Bee allergy status; Z20.822 Contact with and (suspected) exposure to COVID-19

== ENCOUNTER 2023-03-03 08:28 | Day surgery (SDC) | payer MEDICARE, BC ==
[~2023-03-03] VITALS: Ht 182.9 cm; Wt 88.4 kg
[~2023-03-03 08:28] MED LIST changes: +ALBU2.5V10 INH; +ALBUTEROL SULFATE 2.5MG/0.5ML INH NEB SOLN INH ONE; -ASCORBIC ACID 500 MG TAB PO SCH; +CEFD300C41 PO; +LANTINJ4 SC; +LIDO15SO PO; -LIDO15SO4 PO; +LIDOCAINE PRES-FREE 2% 10ML AMP NEB ONE; +MONT-5 PO; +SENN8.6T58 PO; -SING10TA32 PO
[2023-03-03] MEDS ORDERED: PHENYLephrine 500MCG 5ML (100MCG/ML) SYRINGE ONE (08:29)
[2023-03-03] MEDS ORDERED: LR 1,000 ML IV SCH ×2 (09:05→13:05)
[2023-03-03] MEDS ORDERED: LIDOCAINE PRES-FREE 2% 10ML AMP As Ordered ONE (09:07)
[2023-03-03] MEDS ORDERED: MIDAZOLAM INJ 2MG/2ML VIAL As Ordered ONE (10:30)
[2023-03-03] MEDS ORDERED: fentaNYL 100 MCG/2 ML INJECTION As Ordered ONE (10:31)
[2023-03-03] MEDS ORDERED: CETACAINE SPRAY 5GM As Ordered ONE (10:53)
[2023-03-03] MEDS ORDERED: LIDOCAINE 1% SDV 30ML VIAL As Ordered ONE (10:53)
[2023-03-03] MEDS ORDERED: ACETAMINOPHEN 1000MG 100ML IV BAG As Ordered ONE (10:58)
[2023-03-03] MEDS ORDERED: KETAMINE HCL 200MG/20ML VIAL As Ordered ONE (11:03)
[2023-03-03] MEDS ORDERED: fentaNYL 100 MCG/2 ML INJECTION IV PRN (13:05)
[2023-03-03] MEDS ORDERED: ONDANSETRON 4MG 2ML VIAL IV PRN (13:05)
[2023-03-03] MEDS ORDERED: HYDROMORPHONE HCL 0.5 MG/ 0.5 ML SYRINGE IV PRN (13:05)
[2023-03-03] MEDS ORDERED: oxyCODONE 5MG TAB PO PRN (13:05)
[2023-03-03] MEDS ORDERED: ALBUTEROL SULFATE 2.5MG/0.5ML INH NEB SOLN INH ONE (13:10)
[2023-03-03 14:00] VITALS: BP 128/64
== END 2023-03-03 14:28 | disposition home or self-care (01) ==
LOC: M SDC 08:28
PROVIDERS: ATTEND Internal Medicine Critical Care Medicine
DX: J98.4 Other disorders of lung (principal); R05.3 Chronic cough; Z85.21 Personal history of malignant neoplasm of larynx; J15.6 Pneumonia due to other Gram-negative bacteria; Z93.0 Tracheostomy status; F17.218 Nicotine dependence, cigarettes, with other nicotine-induced disorders; E03.9 Hypothyroidism, unspecified; I25.2 Old myocardial infarction; Z95.1 Presence of aortocoronary bypass graft; I11.0 Hypertensive heart disease with heart failure; I25.10 Atherosclerotic heart disease of native coronary artery without angina pectoris; Z95.5 Presence of coronary angioplasty implant and graft; I50.20 Unspecified systolic (congestive) heart failure; E11.9 Type 2 diabetes mellitus without complications; K59.00 Constipation, unspecified; G62.9 Polyneuropathy, unspecified; Z95.0 Presence of cardiac pacemaker; F41.9 Anxiety disorder, unspecified; F32.9 Major depressive disorder, single episode, unspecified; Z88.1 Allergy status to other antibiotic agents; Z88.8 Allergy status to other drugs, medicaments and biological substances; Z91.030 Bee allergy status; Z79.899 Other long term (current) drug therapy; Z79.891 Long term (current) use of opiate analgesic; Z79.4 Long term (current) use of insulin; Z79.82 Long term (current) use of aspirin
CPT/HCPCS: 31615; 31624; 87070; 87077; 87102; 87116; 87186; 87205; 87206; J0131; J2250; J2370; J3010

== ENCOUNTER → 2023-03-17 | Outpatient (REF) | payer MEDICARE, BC ==
[~2023-03-17] MED LIST changes: -ALBUTEROL SULFATE 2.5MG/0.5ML INH NEB SOLN INH ONE; -LIDOCAINE PRES-FREE 2% 10ML AMP NEB ONE
[2023-03-17 14:57] LABS: HEMATOCRIT 52.1 % (42.0-52.0); HEMOGLOBIN 16.8 g/dl (13.5-17.5); MEAN CORPUSCULAR HEMOGLOBIN 30.9 pg (27.0-33.0); MEAN CORPUSCULAR HGB CONC 32.2 g/dl (32.0-36.5); MEAN CORPUSCULAR VOLUME 95.9 fl (80.0-96.0); PLATELET COUNT, AUTOMATED 254 10^3/uL (150-450); RED BLOOD COUNT 5.43 10^6/uL (4.30-6.10); WHITE BLOOD COUNT 8.1 10^3/uL (4.0-10.0)
[2023-03-17 15:01] LABS: ALBUMIN 3.8 G/DL (3.2-5.2); ALKALINE PHOSPHATASE 102 U/L (46-116); ALT/SGPT 20 U/L (7.0-40); AST/SGOT 20 U/L (<34); BILIRUBIN,TOTAL 0.5 MG/DL (0.3-1.2); BLOOD UREA NITROGEN 16 MG/DL (9-23); CALCIUM LEVEL 9.3 MG/DL (8.3-10.6); CARBON DIOXIDE LEVEL 33 MMOL/L (20-31); CHLORIDE LEVEL 101 MMOL/L (98-107); CHOLESTEROL LEVEL 173 MG/DL (<200); CHOLESTEROL RISK RATIO 3.96 (<5); CREATININE FOR GFR 0.85 MG/DL (0.70-1.30); GLOMERULAR FILTRATION RATE > 60.0 (>42); GLUCOSE, FASTING 210 MG/DL (74-106); HDL CHOLESTEROL 43.6 MG/DL (>40); LDL CHOLESTEROL 95.4 MG/DL (<100); NON-HDL-C 129.4 MG/DL; POTASSIUM SERUM 4.8 MMOL/L (3.5-5.1); SODIUM LEVEL 137 MMOL/L (136-145); TOTAL PROTEIN 6.7 G/DL (5.7-8.2); TRIGLYCERIDES LEVEL 170 MG/DL (<150)
[2023-03-17 15:03] LABS: FREE T4 1.27 NG/DL (0.89-1.76)
== END ==
LOC: M SFHCADAM 10:04
PROVIDERS: ATTEND Family Medicine
DX: E11.21 Type 2 diabetes mellitus with diabetic nephropathy (principal); E78.2 Mixed hyperlipidemia; F43.23 Adjustment disorder with mixed anxiety and depressed mood; E03.8 Other specified hypothyroidism

== ENCOUNTER 2023-03-24 19:30 | Observation (INO) | payer MEDICARE, BC ==
[~2023-03-24] VITALS: Ht 182.9 cm; Wt 91.4 kg
[2023-03-24 21:05] LABS: BASO # 0.1 10^3/uL (0.0-0.2); BASO % 0.5 % (0.0-1.0); EOS # 0.1 10^3/uL (0.0-0.5); EOS % 0.7 % (0.0-3.0); HEMATOCRIT 49.4 % (42.0-52.0); HEMOGLOBIN 16.7 g/dl (13.5-17.5); LYMPH # 0.7 10^3/uL (1.5-5.0); LYMPH % 6.1 % (24.0-44.0); MEAN CORPUSCULAR HEMOGLOBIN 31.5 pg (27.0-33.0); MEAN CORPUSCULAR HGB CONC 33.8 g/dl (32.0-36.5); MEAN CORPUSCULAR VOLUME 93.2 fl (80.0-96.0); MONO # 0.7 10^3/uL (0.0-0.8); MONO % 6.5 % (2.0-8.0); NEUTROPHILS # 9.5 10^3/uL (1.5-8.5); NEUTROPHILS % 85.7 % (36.0-66.0); PLATELET COUNT, AUTOMATED 207 10^3/uL (150-450); WHITE BLOOD COUNT 11.1 10^3/uL (4.0-10.0)
[2023-03-24 21:28] LABS: ALBUMIN 3.8 G/DL (3.2-5.2); ALKALINE PHOSPHATASE 116 U/L (46-116); ALT/SGPT 20 U/L (7.0-40); AST/SGOT < 8 U/L (<34); BILIRUBIN,DIRECT 0.2 MG/DL (<0.4); BILIRUBIN,TOTAL 0.5 MG/DL (0.3-1.2); BLOOD UREA NITROGEN 20 MG/DL (9-23); CALCIUM LEVEL 8.6 MG/DL (8.3-10.6); CARBON DIOXIDE LEVEL 32 MMOL/L (20-31); CHLORIDE LEVEL 100 MMOL/L (98-107); CREATININE FOR GFR 0.95 MG/DL (0.70-1.30); GLOMERULAR FILTRATION RATE > 60.0 (>42); GLUCOSE, FASTING 269 MG/DL (74-106); POTASSIUM SERUM 4.2 MMOL/L (3.5-5.1); SODIUM LEVEL 137 MMOL/L (136-145); TOTAL PROTEIN 6.2 G/DL (5.7-8.2)
[2023-03-25] VITALS (8 sets, daily range): BP systolic 125–170; BP diastolic 58–79
[2023-03-25] MEDS ORDERED: DEXTROSE 50% 50ML SYRINGE IV PRN (01:00)
[2023-03-25] MEDS ORDERED: NS 1,000 ML IV SCH (01:00)
[2023-03-25] MEDS ORDERED: NS 500 ML IV ONE (01:00)
[2023-03-25] MEDS ORDERED: GLUCOSE 4GM CHEW TABLET PO PRN (01:00)
[2023-03-25] MEDS ORDERED: GLUCAGON INJ 1MG VIAL SC PRN (01:00)
[2023-03-25] MEDS ORDERED: ALBUTEROL SULFATE 2.5MG/0.5ML INH NEB SOLN INH PRN (01:00)
[2023-03-25] MEDS ORDERED: ACETAMINOPHEN TAB 650MG DOSE (2X325MG) PO PRN (01:00)
[2023-03-25] MEDS ORDERED: RISATAB3 PO (01:59)
[2023-03-25] MEDS ORDERED: SODI0.9N3 INH (01:59)
[2023-03-25] MEDS ORDERED: HOME MED LIST COMPLETE! XX SCH (02:00)
[2023-03-25] MEDS ORDERED: ALBUTEROL SULFATE 2.5MG/0.5ML INH NEB SOLN NEB ONE (02:00)
[2023-03-25] MEDS: IPRATROPIUM 0.5MG/ALBUTEROL 2.5MG INH SOL UD 3ML (DUONEB) INH SCH ×4 (02:06→19:32)
[2023-03-25] MEDS: INSULIN LISPRO (NovoLOG) PER UNIT SC SCH ×2 (06:11→14:12)
[2023-03-25 08:06] LABS: HEMATOCRIT 44.5 % (42.0-52.0); HEMOGLOBIN 14.8 g/dl (13.5-17.5); MEAN CORPUSCULAR HEMOGLOBIN 31.4 pg (27.0-33.0); MEAN CORPUSCULAR HGB CONC 33.3 g/dl (32.0-36.5); MEAN CORPUSCULAR VOLUME 94.3 fl (80.0-96.0); PLATELET COUNT, AUTOMATED 194 10^3/uL (150-450); RED BLOOD COUNT 4.72 10^6/uL (4.30-6.10); WHITE BLOOD COUNT 6.6 10^3/uL (4.0-10.0)
[2023-03-25 08:15] LABS: INR 0.98; PROTHROMBIN TIME 13.2 SECONDS (12.5-14.5)
[2023-03-25 08:16] LABS: PARTIAL THROMBOPLASTIN TIME 29.2 SECONDS (24.8-34.2)
[2023-03-25 08:23] LABS: ALBUMIN 3.3 G/DL (3.2-5.2); ALKALINE PHOSPHATASE 81 U/L (46-116); ALT/SGPT 18 U/L (7.0-40); AST/SGOT 18 U/L (<34); BILIRUBIN,TOTAL 0.6 MG/DL (0.3-1.2); BLOOD UREA NITROGEN 19 MG/DL (9-23); CALCIUM LEVEL 8.1 MG/DL (8.3-10.6); CARBON DIOXIDE LEVEL 32 MMOL/L (20-31); CHLORIDE LEVEL 105 MMOL/L (98-107); CREATININE FOR GFR 0.87 MG/DL (0.70-1.30); GLOMERULAR FILTRATION RATE > 60.0 (>42); GLUCOSE, FASTING 130 MG/DL (74-106); POTASSIUM SERUM 4.1 MMOL/L (3.5-5.1); SODIUM LEVEL 139 MMOL/L (136-145); TOTAL PROTEIN 5.5 G/DL (5.7-8.2)
[2023-03-25] MEDS: LACTIC ACID 12% LOTION 225 GM BTL TOP SCH ×2 (09:18→20:48)
[2023-03-25] MEDS ORDERED: CETACAINE SPRAY 5GM As Ordered ONE (11:14)
[2023-03-25] MEDS ORDERED: LIDOCAINE 2% MDV 20ML VIAL As Ordered ONE (11:14)
[2023-03-25] MEDS ORDERED: fentaNYL 100 MCG/2 ML INJECTION As Ordered ONE (11:16)
[2023-03-25] MEDS ORDERED: LIDOCAINE 2% 100MG/5ML SDV (FOR ANES.) As Ordered ONE (11:16)
[2023-03-25] MEDS ORDERED: propofoL 200 MG/20 ML VIAL As Ordered ONE (11:16)
[2023-03-25] MEDS ORDERED: MIDAZOLAM INJ 2MG/2ML VIAL As Ordered ONE (11:16)
[2023-03-25] MEDS ORDERED: PHENYLephrine 500MCG 5ML (100MCG/ML) SYRINGE As Ordered ONE (11:47)
[2023-03-25] MEDS ORDERED: PHENYLEPHRINE 10MG/ML 1ML VIAL IV PRN (12:20)
[2023-03-25] MEDS: ePHEDrine INJ 50MG/ML 1ML VIAL IV PRN ×2 (12:22→12:35)
[2023-03-25] MEDS: ePHEDrine SULFATE 25 MG/5 ML(5MG/ML) SYRINGE IV PRN ×2 (12:22→12:35)
[2023-03-25] MEDS ORDERED: LR 1,000 ML IV SCH (12:40)
[2023-03-25] MEDS ORDERED: fentaNYL 100 MCG/2 ML INJECTION IV PRN (12:40)
[2023-03-25] MEDS ORDERED: ONDANSETRON 4MG 2ML VIAL IV PRN (12:40)
[2023-03-25] MEDS ORDERED: SENNA 8.6 MG TAB (SENOKOT) PO PRN (15:20)
[2023-03-25] MEDS ORDERED: INSULIN LISPRO (NovoLOG) PER UNIT SC SCH ×2 (17:30→21:00)
[2023-03-25] MEDS: CARVedilol 6.25 MG TAB PO SCH (20:48)
[2023-03-25] MEDS ORDERED: VALSARTAN 80 MG TAB (DIOVAN) PO SCH (21:00)
[2023-03-25] MEDS ORDERED: ASPIRIN 81MG CHEW TABLET PO SCH (21:00)
[2023-03-25] MEDS ORDERED: MAGNESIUM OXIDE 400MG TAB (MAG-OX) PO SCH (21:00)
[2023-03-26 00:31] VITALS: BP 141/63
[2023-03-26] MEDS: IPRATROPIUM 0.5MG/ALBUTEROL 2.5MG INH SOL UD 3ML (DUONEB) INH SCH ×2 (01:13→07:16)
[2023-03-26 04:17] VITALS: BP 157/70
[2023-03-26] MEDS ORDERED: LEVOTHYROXINE 125MCG TABLET (0.125MG) PO SCH (06:00)
[2023-03-26 06:39] LABS: HEMATOCRIT 44.1 % (42.0-52.0); HEMOGLOBIN 14.6 g/dl (13.5-17.5); MEAN CORPUSCULAR HEMOGLOBIN 31.7 pg (27.0-33.0); MEAN CORPUSCULAR HGB CONC 33.1 g/dl (32.0-36.5); MEAN CORPUSCULAR VOLUME 95.9 fl (80.0-96.0); PLATELET COUNT, AUTOMATED 180 10^3/uL (150-450); WHITE BLOOD COUNT 8.1 10^3/uL (4.0-10.0)
[2023-03-26 07:10] LABS: ALBUMIN 3.3 G/DL (3.2-5.2); ALKALINE PHOSPHATASE 83 U/L (46-116); ALT/SGPT 20 U/L (7.0-40); AST/SGOT 17 U/L (<34); BILIRUBIN,TOTAL 0.8 MG/DL (0.3-1.2); BLOOD UREA NITROGEN 16 MG/DL (9-23); CALCIUM LEVEL 8.1 MG/DL (8.3-10.6); CARBON DIOXIDE LEVEL 31 MMOL/L (20-31); CHLORIDE LEVEL 105 MMOL/L (98-107); CREATININE FOR GFR 0.76 MG/DL (0.70-1.30); GLOMERULAR FILTRATION RATE > 60.0 (>42); GLUCOSE, FASTING 183 MG/DL (74-106); POTASSIUM SERUM 4.9 MMOL/L (3.5-5.1); SODIUM LEVEL 139 MMOL/L (136-145); TOTAL PROTEIN 5.5 G/DL (5.7-8.2)
[2023-03-26 08:00] VITALS: BP 128/59
[2023-03-26] MEDS ORDERED: ENOXAPARIN 40MG/0.4ML SYRINGE (J1650 PER 10MG) SC SCH (09:00)
[2023-03-26] MEDS ORDERED: FUROSEMIDE 40 MG TAB PO SCH (09:00)
[2023-03-26] MEDS: CARVedilol 6.25 MG TAB PO SCH (09:30)
[2023-03-26] MEDS ORDERED: ATORVASTATIN 10 MG TAB PO SCH (21:00)
== END 2023-03-26 09:43 | disposition home or self-care (01) ==
LOC: M ED 19:30 → M ED INP 19:31 → M PCU 03-25 03:34
PROVIDERS: ADMIT Internal Medicine; ATTEND Internal Medicine
DX: J96.01 Acute respiratory failure with hypoxia (principal); J98.4 Other disorders of lung; B37.1 Pulmonary candidiasis; J96.10 Chronic respiratory failure, unspecified whether with hypoxia or hypercapnia; J44.9 Chronic obstructive pulmonary disease, unspecified; I10 Essential (primary) hypertension; E78.5 Hyperlipidemia, unspecified; I25.10 Atherosclerotic heart disease of native coronary artery without angina pectoris; E07.9 Disorder of thyroid, unspecified; E11.51 Type 2 diabetes mellitus with diabetic peripheral angiopathy without gangrene; I25.2 Old myocardial infarction; Z95.1 Presence of aortocoronary bypass graft; J45.909 Unspecified asthma, uncomplicated; I73.9 Peripheral vascular disease, unspecified; Z85.818 Personal history of malignant neoplasm of other sites of lip, oral cavity, and pharynx; Z92.21 Personal history of antineoplastic chemotherapy; Z92.3 Personal history of irradiation; F17.210 Nicotine dependence, cigarettes, uncomplicated; Z79.899 Other long term (current) drug therapy; Z79.82 Long term (current) use of aspirin; Z79.4 Long term (current) use of insulin; Z79.890 Hormone replacement therapy; Z88.8 Allergy status to other drugs, medicaments and biological substances; Z88.1 Allergy status to other antibiotic agents; Z91.030 Bee allergy status; Z93.0 Tracheostomy status
CPT/HCPCS: 31615; 31624; 36415; 71045; 80048; 80053; 80076; 83880; 84484; 85025; 85027; 85610; 85730; 87040; 87070; 87077; 87102; 87116; 87186; 87205; 87206; 87486; 87581; 87633; 87798; 88108; 88313; 93005; 93041; 94640; 94760; 99285; G0378; J1815; J2250; J2370; J3010

== ENCOUNTER 2023-04-22 03:14 | Emergency (ER) | payer MEDICARE, BC ==
[~2023-04-22] VITALS: Ht 188 cm; Wt 79.2 kg
[~2023-04-22 03:14] MED LIST changes: +RISATAB3 PO; +SODI0.9N3 INH
[2023-04-22 03:39] LABS: BASO # 0.1 10^3/uL (0.0-0.2); BASO % 0.6 % (0.0-1.0); EOS # 0.2 10^3/uL (0.0-0.5); EOS % 1.8 % (0.0-3.0); HEMATOCRIT 45.3 % (42.0-52.0); HEMOGLOBIN 15.4 g/dl (13.5-17.5); LYMPH # 1.2 10^3/uL (1.5-5.0); LYMPH % 10.2 % (24.0-44.0); MEAN CORPUSCULAR HEMOGLOBIN 31.7 pg (27.0-33.0); MEAN CORPUSCULAR VOLUME 93.2 fl (80.0-96.0); MONO # 0.9 10^3/uL (0.0-0.8); MONO % 7.5 % (2.0-8.0); NEUTROPHILS # 9.3 10^3/uL (1.5-8.5); NEUTROPHILS % 79.3 % (36.0-66.0); PLATELET COUNT, AUTOMATED 227 10^3/uL (150-450); RED BLOOD COUNT 4.86 10^6/uL (4.30-6.10); WHITE BLOOD COUNT 11.7 10^3/uL (4.0-10.0)
[2023-04-22 03:51] LABS: INR 0.92; PARTIAL THROMBOPLASTIN TIME 21.5 SECONDS (24.8-34.2); PROTHROMBIN TIME 12.6 SECONDS (12.5-14.5)
[2023-04-22 04:04] LABS: LIPASE 19 U/L (12-53)
[2023-04-22 04:06] LABS: ALBUMIN 3.6 G/DL (3.2-5.2); ALKALINE PHOSPHATASE 155 U/L (46-116); ALT/SGPT 60 U/L (7.0-40); AST/SGOT 72 U/L (<34); BILIRUBIN,DIRECT 0.1 MG/DL (<0.4); BILIRUBIN,TOTAL 0.4 MG/DL (0.3-1.2); BLOOD UREA NITROGEN 22 MG/DL (9-23); CALCIUM LEVEL 8.4 MG/DL (8.3-10.6); CARBON DIOXIDE LEVEL 30 MMOL/L (20-31); CHLORIDE LEVEL 101 MMOL/L (98-107); CK-MB VALUE MASS 3.7 NG/ML (<3.6); CREATININE FOR GFR 0.86 MG/DL (0.70-1.30); GLOMERULAR FILTRATION RATE > 60.0 (>42); GLUCOSE, FASTING 385 MG/DL (74-106); POTASSIUM SERUM 5.1 MMOL/L (3.5-5.1); SODIUM LEVEL 135 MMOL/L (136-145); TOTAL PROTEIN 6.1 G/DL (5.7-8.2)
[2023-04-22 04:08] LABS: THYROID STIMULATING HORMONE 12.873 uIU/ML (0.55-4.78)
[2023-04-22 04:12] LABS: CPK CREATINE PHOSPHOKINASE 139 U/L (46-171); MB/CK RELATIVE INDEX 2.66 (< OR =4)
[2023-04-22 04:33] VITALS: O2SAT 100
[2023-04-22 05:36] LABS: CK-MB VALUE MASS 3.3 NG/ML (<3.6)
[2023-04-22 05:39] LABS: MB/CK RELATIVE INDEX 2.55 (< OR =4)
[2023-04-22 07:19] LABS: CK-MB VALUE MASS 3.7 NG/ML (<3.6)
[2023-04-22 07:24] LABS: MB/CK RELATIVE INDEX 3.1 (< OR =4)
[2023-04-22] MEDS ORDERED: HEPARIN SOD (PORCINE) 5000UNITS/ML 1ML VIAL/SYRINGE IV ONE (08:05)
[2023-04-22] MEDS ORDERED: HEPARIN DRIP 25,000 UNITS in IV 1 EA IV SCH (08:05)
[2023-04-22] MEDS ORDERED: ASPIRIN 81MG CHEW TABLET PO ONE (08:10)
[2023-04-22 09:30] VITALS: BP 170/74
== END 2023-04-22 09:39 | disposition short-term general hospital (02) ==
LOC: EDBD 03:14 → M ED 03:14
DX: I21.4 Non-ST elevation (NSTEMI) myocardial infarction (principal); I11.9 Hypertensive heart disease without heart failure; E11.9 Type 2 diabetes mellitus without complications; I25.2 Old myocardial infarction; E03.9 Hypothyroidism, unspecified; E78.5 Hyperlipidemia, unspecified; G90.09 Other idiopathic peripheral autonomic neuropathy; Z95.5 Presence of coronary angioplasty implant and graft; Z88.8 Allergy status to other drugs, medicaments and biological substances; Z88.1 Allergy status to other antibiotic agents; Z91.030 Bee allergy status; Z79.4 Long term (current) use of insulin; Z79.82 Long term (current) use of aspirin; Z79.899 Other long term (current) drug therapy; Z79.51 Long term (current) use of inhaled steroids

== ENCOUNTER → 2023-05-17 | Outpatient (CLI) | payer MEDICARE, BC ==
[2023-05-17 11:31] LABS: ALBUMIN 3.7 G/DL (3.2-5.2); ALKALINE PHOSPHATASE 122 U/L (46-116); ALT/SGPT 23 U/L (7.0-40); AST/SGOT 14 U/L (<34); BILIRUBIN,TOTAL 0.4 MG/DL (0.3-1.2); BLOOD UREA NITROGEN 16 MG/DL (9-23); CALCIUM LEVEL 8.6 MG/DL (8.3-10.6); CARBON DIOXIDE LEVEL 31 MMOL/L (20-31); CHLORIDE LEVEL 102 MMOL/L (98-107); GLOMERULAR FILTRATION RATE > 60.0 (>42); GLUCOSE, FASTING 182 MG/DL (74-106); POTASSIUM SERUM 4.3 MMOL/L (3.5-5.1); SODIUM LEVEL 139 MMOL/L (136-145); TOTAL PROTEIN 5.9 G/DL (5.7-8.2)
== END ==
LOC: M LAB 10:01
PROVIDERS: ATTEND Internal Medicine Critical Care Medicine
DX: J15.6 Pneumonia due to other Gram-negative bacteria (principal)

== ENCOUNTER → 2023-06-03 | Outpatient (REF) | payer MEDICARE, BC | LOC: M LAB REF 11:20 | PROVIDERS: ATTEND Internal Medicine Critical Care Medicine | DX: J15.6 Pneumonia due to other Gram-negative bacteria (principal) ==

== ENCOUNTER → 2023-06-09 | Outpatient (REF) | payer MEDICARE, BC ==
[2023-06-09 15:51] LABS: C REACTIVE PROTEIN QUANTITATIV < 0.40 MG/DL (<1.0)
[2023-06-09 15:53] LABS: ALBUMIN 3.9 G/DL (3.2-5.2); ALKALINE PHOSPHATASE 108 U/L (46-116); ALT/SGPT 23 U/L (7.0-40); AST/SGOT 15 U/L (<34); BILIRUBIN,TOTAL 0.6 MG/DL (0.3-1.2); BLOOD UREA NITROGEN 17 MG/DL (9-23); CALCIUM LEVEL 8.9 MG/DL (8.3-10.6); CARBON DIOXIDE LEVEL 33 MMOL/L (20-31); CHLORIDE LEVEL 99 MMOL/L (98-107); CREATININE FOR GFR 0.76 MG/DL (0.70-1.30); GLOMERULAR FILTRATION RATE > 60.0 (>42); GLUCOSE, FASTING 219 MG/DL (74-106); POTASSIUM SERUM 4.7 MMOL/L (3.5-5.1); SODIUM LEVEL 136 MMOL/L (136-145); TOTAL PROTEIN 6.6 G/DL (5.7-8.2)
[2023-06-09 15:55] LABS: FREE T4 1.33 NG/DL (0.89-1.76); THYROID STIMULATING HORMONE 1.275 uIU/ML (0.55-4.78)
[2023-06-09 16:09] LABS: BASO % 0.5 % (0.0-1.0); EOS # 0.1 10^3/uL (0.0-0.5); EOS % 1.3 % (0.0-3.0); HEMOGLOBIN 15.9 g/dl (13.5-17.5); LYMPH # 0.8 10^3/uL (1.5-5.0); LYMPH % 10.3 % (24.0-44.0); MEAN CORPUSCULAR HEMOGLOBIN 31.8 pg (27.0-33.0); MEAN CORPUSCULAR HGB CONC 33.1 g/dl (32.0-36.5); MONO # 0.6 10^3/uL (0.0-0.8); MONO % 8.2 % (2.0-8.0); NEUTROPHILS # 6.1 10^3/uL (1.5-8.5); NEUTROPHILS % 79.1 % (36.0-66.0); PLATELET COUNT, AUTOMATED 230 10^3/uL (150-450); WHITE BLOOD COUNT 7.8 10^3/uL (4.0-10.0)
[2023-06-09 16:31] LABS: HEMOGLOBIN A1c 8.8 % (4.0-6.0)
== END ==
LOC: M SFHCADAM 11:04
PROVIDERS: ATTEND Family Medicine
DX: S20.369 Insect bite (nonvenomous) of unspecified front wall of thorax (principal); W57.XXXD Bitten or stung by nonvenomous insect and other nonvenomous arthropods, subsequent encounter; R23.2 Flushing; E03.8 Other specified hypothyroidism; E11.21 Type 2 diabetes mellitus with diabetic nephropathy; I11.0 Hypertensive heart disease with heart failure; I50.22 Chronic systolic (congestive) heart failure

== ENCOUNTER 2023-06-15 21:30 | Inpatient (IN) | payer MEDICARE, BC ==
[~2023-06-15] VITALS: Ht 182.9 cm; Wt 87.0 kg
[2023-06-15 22:27] LABS: BASO # 0.1 10^3/uL (0.0-0.2); BASO % 0.6 % (0.0-1.0); EOS # 0.1 10^3/uL (0.0-0.5); EOS % 1.6 % (0.0-3.0); HEMATOCRIT 47.2 % (42.0-52.0); HEMOGLOBIN 16.1 g/dl (13.5-17.5); LYMPH # 0.9 10^3/uL (1.5-5.0); MEAN CORPUSCULAR HEMOGLOBIN 31.8 pg (27.0-33.0); MEAN CORPUSCULAR HGB CONC 34.1 g/dl (32.0-36.5); MEAN CORPUSCULAR VOLUME 93.3 fl (80.0-96.0); MONO # 0.8 10^3/uL (0.0-0.8); MONO % 9.9 % (2.0-8.0); NEUTROPHILS # 6.4 10^3/uL (1.5-8.5); NEUTROPHILS % 76.7 % (36.0-66.0); PLATELET COUNT, AUTOMATED 220 10^3/uL (150-450); RED BLOOD COUNT 5.06 10^6/uL (4.30-6.10); WHITE BLOOD COUNT 8.4 10^3/uL (4.0-10.0)
[2023-06-15 22:55] VITALS: O2SAT 96
[2023-06-15 23:05] LABS: BLOOD UREA NITROGEN 15 MG/DL (9-23); CALCIUM LEVEL 8.8 MG/DL (8.3-10.6); CARBON DIOXIDE LEVEL 30 MMOL/L (20-31); CHLORIDE LEVEL 100 MMOL/L (98-107); CREATININE FOR GFR 0.81 MG/DL (0.70-1.30); GLOMERULAR FILTRATION RATE > 60.0 (>42); GLUCOSE, FASTING 178 MG/DL (74-106); POTASSIUM SERUM 4.6 MMOL/L (3.5-5.1); SODIUM LEVEL 139 MMOL/L (136-145)
[2023-06-16] MEDS ORDERED: ACETAMINOPHEN TAB 650MG DOSE (2X325MG) PO PRN (02:20)
[2023-06-16] MEDS ORDERED: DEXTROSE 50% 50ML SYRINGE IV PRN (02:25)
[2023-06-16] MEDS ORDERED: GLUCOSE 4GM CHEW TABLET PO PRN (02:25)
[2023-06-16] MEDS ORDERED: GLUCAGON INJ 1MG VIAL SC PRN (02:25)
[2023-06-16] MEDS ORDERED: IPRATROPIUM 0.5MG/ALBUTEROL 2.5MG INH SOL UD 3ML (DUONEB) NEB PRN (02:30)
[2023-06-16] MEDS ORDERED: SULFAMETHOXAZOLE IV SCH (04:00)
[2023-06-16] MEDS ORDERED: TRIMETHOPRIM IV SCH (04:00)
[2023-06-16] MEDS ORDERED: D5W IV SCH (04:00)
[2023-06-16 04:35] VITALS: BP 172/75; TEMP 97.2; O2SAT 98
[2023-06-16] MEDS ORDERED: INSULIN LISPRO (NovoLOG) PER UNIT SC SCH ×3 (06:00→21:00)
[2023-06-16] MEDS: TRIMETHOPRIM IV SCH ×2 (06:02→12:35)
[2023-06-16] MEDS: D5W IV SCH ×2 (06:02→12:35)
[2023-06-16] MEDS: SULFAMETHOXAZOLE IV SCH ×2 (06:02→12:35)
[2023-06-16 07:18] LABS: HEMOGLOBIN 15.3 g/dl (13.5-17.5); MEAN CORPUSCULAR HEMOGLOBIN 31.8 pg (27.0-33.0); MEAN CORPUSCULAR VOLUME 93.6 fl (80.0-96.0); PLATELET COUNT, AUTOMATED 197 10^3/uL (150-450); RED BLOOD COUNT 4.81 10^6/uL (4.30-6.10); WHITE BLOOD COUNT 6.6 10^3/uL (4.0-10.0)
[2023-06-16 07:41] LABS: ALBUMIN 3.7 G/DL (3.2-5.2); ALKALINE PHOSPHATASE 86 U/L (46-116); ALT/SGPT 17 U/L (7.0-40); AST/SGOT 14 U/L (<34); BILIRUBIN,TOTAL 0.7 MG/DL (0.3-1.2); BLOOD UREA NITROGEN 10 MG/DL (9-23); CARBON DIOXIDE LEVEL 31 MMOL/L (20-31); CHLORIDE LEVEL 102 MMOL/L (98-107); CREATININE FOR GFR 0.84 MG/DL (0.70-1.30); GLOMERULAR FILTRATION RATE > 60.0 (>42); GLUCOSE, FASTING 207 MG/DL (74-106); SODIUM LEVEL 138 MMOL/L (136-145); TOTAL PROTEIN 6.2 G/DL (5.7-8.2)
[2023-06-16 07:44] VITALS: BP 133/59; TEMP 96.6; O2SAT 94
[2023-06-16] MEDS ORDERED: HOME MED LIST COMPLETE! XX SCH (08:55)
[2023-06-16] MEDS ORDERED: C 50TAB PO (08:55)
[2023-06-16] MEDS ORDERED: VITA100054 PO (08:55)
[2023-06-16] MEDS ORDERED: FURO40TA2 PO (08:55)
[2023-06-16] MEDS ORDERED: CLOP75TA2 PO (08:55)
[2023-06-16] MEDS ORDERED: HEPARIN SOD (PORCINE) 5000UNITS/ML 1ML VIAL/SYRINGE SC SCH (09:00)
[2023-06-16] MEDS ORDERED: CETACAINE SPRAY 5GM As Ordered ONE (10:39)
[2023-06-16] MEDS ORDERED: THROMBIN 5,000 UNITS VIAL As Ordered ONE (10:39)
[2023-06-16] MEDS ORDERED: EPINEPHrine 1MG/10ML SYRINGE 1.5IN As Ordered ONE (10:39)
[2023-06-16] MEDS ORDERED: LIDOCAINE 2% MDV 20ML VIAL As Ordered ONE (11:04)
[2023-06-16] MEDS ORDERED: MIDAZOLAM INJ 2MG/2ML VIAL As Ordered ONE (11:10)
[2023-06-16] MEDS ORDERED: ONDANSETRON 4MG 2ML VIAL As Ordered ONE (11:10)
[2023-06-16] MEDS ORDERED: fentaNYL 100 MCG/2 ML INJECTION As Ordered ONE (11:10)
[2023-06-16 12:31] VITALS: BP 93/49; TEMP 97.5; O2SAT 90
[2023-06-16] MEDS ORDERED: BACT800T5 PO (13:02)
[2023-06-16] MEDS ORDERED: PROB250C PO (13:02)
[2023-06-16 13:24] VITALS: BP 110/50
[2023-06-16 14:43] VITALS: BP 140/64; O2SAT 92
[2023-06-16] MEDS ORDERED: BACTRIM 160MG/800MG DS TAB PO SCH (18:00)
== END 2023-06-16 16:38 | disposition home or self-care (01) | DRG 202 ==
LOC: M ED 21:30 → M ED INP 06-16 02:16 → M PCU 06-16 04:35
PROVIDERS: ADMIT Family Medicine; ATTEND Family Medicine
PROC: 0B938ZX Drainage of Right Main Bronchus, Via Natural or Artificial Opening Endoscopic, Diagnostic (ICD-10-PCS; principal; 2023-06-16 11:00)
DX: J39.8 Other specified diseases of upper respiratory tract (principal); J15.6 Pneumonia due to other Gram-negative bacteria; J44.1 Chronic obstructive pulmonary disease with (acute) exacerbation; J44.0 Chronic obstructive pulmonary disease with (acute) lower respiratory infection; C13.9 Malignant neoplasm of hypopharynx, unspecified; F17.210 Nicotine dependence, cigarettes, uncomplicated; I25.10 Atherosclerotic heart disease of native coronary artery without angina pectoris; I25.2 Old myocardial infarction; I73.9 Peripheral vascular disease, unspecified; E11.51 Type 2 diabetes mellitus with diabetic peripheral angiopathy without gangrene; E78.00 Pure hypercholesterolemia, unspecified; I10 Essential (primary) hypertension; E03.9 Hypothyroidism, unspecified; I27.81 Cor pulmonale (chronic); Z79.82 Long term (current) use of aspirin; Z79.4 Long term (current) use of insulin; Z79.890 Hormone replacement therapy; Z79.899 Other long term (current) drug therapy; Z91.030 Bee allergy status; Z88.1 Allergy status to other antibiotic agents; Z93.0 Tracheostomy status; Z88.8 Allergy status to other drugs, medicaments and biological substances; Z95.5 Presence of coronary angioplasty implant and graft

== ENCOUNTER → 2023-08-03 | Outpatient (REF) | payer MEDICARE, BC ==
[~2023-08-03] MED LIST changes: +C 50TAB PO; +CLOP75TA2 PO; +PROB250C PO; +VITA100054 PO
== END ==
LOC: M LAB REF 15:01
PROVIDERS: ATTEND Internal Medicine Critical Care Medicine
DX: J15.6 Pneumonia due to other Gram-negative bacteria (principal)

== ENCOUNTER → 2023-08-10 | Outpatient (CLI) | payer MEDICARE, BC ==
[2023-08-10 11:24] LABS: BASO # 0.1 10^3/uL (0.0-0.2); BASO % 0.6 % (0.0-1.0); EOS # 0.1 10^3/uL (0.0-0.5); EOS % 1.4 % (0.0-3.0); HEMATOCRIT 47.6 % (42.0-52.0); HEMOGLOBIN 15.9 g/dl (13.5-17.5); LYMPH # 0.8 10^3/uL (1.5-5.0); LYMPH % 10.3 % (24.0-44.0); MEAN CORPUSCULAR HEMOGLOBIN 31.7 pg (27.0-33.0); MEAN CORPUSCULAR HGB CONC 33.4 g/dl (32.0-36.5); MEAN CORPUSCULAR VOLUME 94.8 fl (80.0-96.0); MONO # 0.8 10^3/uL (0.0-0.8); MONO % 10.1 % (2.0-8.0); NEUTROPHILS # 6.1 10^3/uL (1.5-8.5); NEUTROPHILS % 77.2 % (36.0-66.0); PLATELET COUNT, AUTOMATED 237 10^3/uL (150-450); RED BLOOD COUNT 5.02 10^6/uL (4.30-6.10); WHITE BLOOD COUNT 7.9 10^3/uL (4.0-10.0)
[2023-08-10 11:41] LABS: THYROID STIMULATING HORMONE 3.996 uIU/ML (0.55-4.78)
[2023-08-10 11:42] LABS: ALKALINE PHOSPHATASE 111 U/L (46-116); ALT/SGPT 28 U/L (7.0-40); AST/SGOT 21 U/L (<34); BILIRUBIN,TOTAL 0.7 MG/DL (0.3-1.2); BLOOD UREA NITROGEN 21 MG/DL (9-23); CALCIUM LEVEL 9.3 MG/DL (8.3-10.6); CARBON DIOXIDE LEVEL 35 MMOL/L (20-31); CHLORIDE LEVEL 101 MMOL/L (98-107); CREATININE FOR GFR 0.97 MG/DL (0.70-1.30); FOLATE > 24.0 NG/ML (>5.4); GLOMERULAR FILTRATION RATE > 60.0 (>42); GLUCOSE, FASTING 137 MG/DL (74-106); POTASSIUM SERUM 4.7 MMOL/L (3.5-5.1); SODIUM LEVEL 139 MMOL/L (136-145); TOTAL PROTEIN 6.8 G/DL (5.7-8.2)
[2023-08-10 11:43] LABS: FREE T4 1.41 NG/DL (0.89-1.76)
[2023-08-10 11:44] LABS: HEMOGLOBIN A1c 8.2 % (4.0-6.0); VITAMIN B12 LEVEL 763 PG/ML (211-911)
[2023-08-10 11:53] LABS: ERYTHROCYTE SEDIMENTATION RATE 33 mm/hr (0-20)
== END ==
LOC: M LAB 10:21
PROVIDERS: ATTEND Psychiatry & Neurology Neurology
DX: G62.9 Polyneuropathy, unspecified (principal); R23.2 Flushing; R26.9 Unspecified abnormalities of gait and mobility; E11.21 Type 2 diabetes mellitus with diabetic nephropathy; E03.8 Other specified hypothyroidism

== ENCOUNTER → 2023-08-10 | Outpatient (CLI) | payer MEDICARE, BC ==
[2023-08-10 11:22] LABS: BASO # 0.1 10^3/uL (0.0-0.2); BASO % 0.8 % (0.0-1.0); EOS # 0.1 10^3/uL (0.0-0.5); EOS % 1.4 % (0.0-3.0); HEMATOCRIT 47.6 % (42.0-52.0); LYMPH # 0.8 10^3/uL (1.5-5.0); LYMPH % 10.3 % (24.0-44.0); MEAN CORPUSCULAR HGB CONC 33.6 g/dl (32.0-36.5); MEAN CORPUSCULAR VOLUME 95.2 fl (80.0-96.0); MONO # 0.8 10^3/uL (0.0-0.8); NEUTROPHILS % 76.9 % (36.0-66.0); PLATELET COUNT, AUTOMATED 248 10^3/uL (150-450); WHITE BLOOD COUNT 7.8 10^3/uL (4.0-10.0)
[2023-08-10 11:37] LABS: CREATININE, URINE 50.6 MG/DL; MAU/CREAT RATIO 31.6 MCG/MG (0.0-30.0)
[2023-08-10 11:39] LABS: ALKALINE PHOSPHATASE 110 U/L (46-116); ALT/SGPT 27 U/L (7.0-40); AST/SGOT 21 U/L (<34); BILIRUBIN,TOTAL 0.6 MG/DL (0.3-1.2); BLOOD UREA NITROGEN 21 MG/DL (9-23); CALCIUM LEVEL 9.2 MG/DL (8.3-10.6); CARBON DIOXIDE LEVEL 35 MMOL/L (20-31); CHLORIDE LEVEL 100 MMOL/L (98-107); GLOMERULAR FILTRATION RATE > 60.0 (>42); GLUCOSE, FASTING 136 MG/DL (74-106); POTASSIUM SERUM 4.7 MMOL/L (3.5-5.1); SODIUM LEVEL 140 MMOL/L (136-145); TOTAL PROTEIN 6.8 G/DL (5.7-8.2)
[2023-08-10 11:44] LABS: HEMOGLOBIN A1c 8.1 % (4.0-6.0)
[2023-08-10 11:45] LABS: FOLATE > 24.0 NG/ML (>5.4); FREE T4 1.35 NG/DL (0.89-1.76); VITAMIN B12 LEVEL 742 PG/ML (211-911)
[2023-08-10 11:46] LABS: THYROID STIMULATING HORMONE 3.802 uIU/ML (0.55-4.78)
== END ==
LOC: M LAB 10:23
PROVIDERS: ATTEND Family Medicine
DX: R23.2 Flushing (principal); R26.9 Unspecified abnormalities of gait and mobility; E11.21 Type 2 diabetes mellitus with diabetic nephropathy; E03.8 Other specified hypothyroidism

== ENCOUNTER → 2023-08-31 | Outpatient (REF) | payer MEDICARE, BC ==
[~2023-08-31] MED LIST changes: -CEFD300C41 PO; +CEFD300C42 PO
[2023-08-31 17:15] LABS: CHOLESTEROL RISK RATIO 2.3 (<5); LDL CHOLESTEROL 49.8 MG/DL (<100)
== END ==
LOC: M LABDRWAD 16:24
PROVIDERS: ATTEND Physician Assistant
DX: E78.2 Mixed hyperlipidemia (principal)

== ENCOUNTER → 2023-09-28 | Outpatient (REF) | payer MEDICARE, BC ==
[2023-09-28 14:43] LABS: BASO % 0.5 % (0.0-1.0); EOS # 0.1 10^3/uL (0.0-0.5); EOS % 1.1 % (0.0-3.0); HEMATOCRIT 50.2 % (42.0-52.0); HEMOGLOBIN 16.9 g/dl (13.5-17.5); LYMPH # 1.1 10^3/uL (1.5-5.0); LYMPH % 13.6 % (24.0-44.0); MEAN CORPUSCULAR HEMOGLOBIN 32.2 pg (27.0-33.0); MEAN CORPUSCULAR HGB CONC 33.7 g/dl (32.0-36.5); MEAN CORPUSCULAR VOLUME 95.6 fl (80.0-96.0); MONO # 0.9 10^3/uL (0.0-0.8); MONO % 10.2 % (2.0-8.0); NEUTROPHILS # 6.2 10^3/uL (1.5-8.5); NEUTROPHILS % 74.2 % (36.0-66.0); PLATELET COUNT, AUTOMATED 243 10^3/uL (150-450); RED BLOOD COUNT 5.25 10^6/uL (4.30-6.10); WHITE BLOOD COUNT 8.4 10^3/uL (4.0-10.0)
[2023-09-28 14:44] LABS: BLOOD UREA NITROGEN 18 MG/DL (9-23); CALCIUM LEVEL 8.9 MG/DL (8.3-10.6); CARBON DIOXIDE LEVEL 32 MMOL/L (20-31); CHLORIDE LEVEL 100 MMOL/L (98-107); CREATININE FOR GFR 0.84 MG/DL (0.70-1.30); GLOMERULAR FILTRATION RATE > 60.0 (>42); GLUCOSE, FASTING 212 MG/DL (74-106); POTASSIUM SERUM 4.4 MMOL/L (3.5-5.1); SODIUM LEVEL 138 MMOL/L (136-145)
== END ==
LOC: M SFHCADAM 12:11
PROVIDERS: ATTEND Physician Assistant
DX: L03.115 Cellulitis of right lower limb (principal)

== ENCOUNTER → 2023-09-30 | Outpatient (REF) | payer MEDICARE, BC ==
[~2023-09-30] MED LIST changes: +CEFD1CAP9 PO; -CEFD300C42 PO
[2023-09-30 13:59] LABS: BASO # 0.1 10^3/uL (0.0-0.2); BASO % 0.7 % (0.0-1.0); EOS # 0.1 10^3/uL (0.0-0.5); EOS % 1.4 % (0.0-3.0); HEMATOCRIT 45.7 % (42.0-52.0); HEMOGLOBIN 15.7 g/dl (13.5-17.5); LYMPH # 0.8 10^3/uL (1.5-5.0); LYMPH % 11.3 % (24.0-44.0); MEAN CORPUSCULAR HEMOGLOBIN 32.6 pg (27.0-33.0); MEAN CORPUSCULAR HGB CONC 34.4 g/dl (32.0-36.5); MONO # 0.7 10^3/uL (0.0-0.8); MONO % 9.2 % (2.0-8.0); NEUTROPHILS # 5.6 10^3/uL (1.5-8.5); NEUTROPHILS % 76.8 % (36.0-66.0); PLATELET COUNT, AUTOMATED 241 10^3/uL (150-450); RED BLOOD COUNT 4.81 10^6/uL (4.30-6.10); WHITE BLOOD COUNT 7.3 10^3/uL (4.0-10.0)
[2023-09-30 14:06] LABS: ERYTHROCYTE SEDIMENTATION RATE 17 mm/hr (0-20)
== END ==
LOC: M SFHCADAM 11:20
PROVIDERS: ATTEND Physician Assistant
DX: L03.115 Cellulitis of right lower limb (principal)

== ENCOUNTER → 2023-09-30 | Outpatient (CLI) | payer MEDICARE, BC | LOC: M ADAMS 11:27 | PROVIDERS: ATTEND Physician Assistant | DX: S92.351A Displaced fracture of fifth metatarsal bone, right foot, initial encounter for closed fracture (principal); S92.411A Displaced fracture of proximal phalanx of right great toe, initial encounter for closed fracture; L03.115 Cellulitis of right lower limb; X58.XXXA Exposure to other specified factors, initial encounter; Y92.9 Unspecified place or not applicable; Y93.9 Activity, unspecified; Y99.9 Unspecified external cause status ==

== ENCOUNTER → 2023-10-22 | Outpatient (REF) | payer MEDICARE, BC ==
[~2023-10-22] MED LIST changes: -CEFD1CAP9 PO; +CEFD300C42 PO
== END ==
LOC: M LAB REF 13:22
PROVIDERS: ATTEND Internal Medicine Pulmonary Disease
DX: J15.69 Pneumonia due to other Gram-negative bacteria (principal)

== ENCOUNTER → 2023-10-28 | Outpatient (CLI) | payer MEDICARE, BC ==
[~2023-10-28] MED LIST changes: +CEFD1CAP9 PO; -CEFD300C42 PO
== END ==
LOC: M RAD 11:03
PROVIDERS: ATTEND Podiatrist Foot & Ankle Surgery
DX: I73.89 Other specified peripheral vascular diseases (principal); I70.203 Unspecified atherosclerosis of native arteries of extremities, bilateral legs

== ENCOUNTER → 2023-11-30 | Outpatient (REF) | payer MEDICARE, BC | LOC: M LAB REF 10:24 | PROVIDERS: ATTEND Internal Medicine Pulmonary Disease | DX: J15.69 Pneumonia due to other Gram-negative bacteria (principal) ==

== ENCOUNTER → 2023-11-30 | Outpatient (CLI) | payer MEDICARE, BC ==
[2023-11-30 11:16] LABS: C REACTIVE PROTEIN QUANTITATIV < 0.40 MG/DL (<1.0)
[2023-11-30 11:18] LABS: BLOOD UREA NITROGEN 20 MG/DL (9-23); CALCIUM LEVEL 8.7 MG/DL (8.3-10.6); CARBON DIOXIDE LEVEL 34 MMOL/L (20-31); CHLORIDE LEVEL 104 MMOL/L (98-107); CREATININE FOR GFR 0.84 MG/DL (0.70-1.30); GLOMERULAR FILTRATION RATE > 60.0 (>42); GLUCOSE, FASTING 65 MG/DL (74-106); POTASSIUM SERUM 4.5 MMOL/L (3.5-5.1); SODIUM LEVEL 142 MMOL/L (136-145)
== END ==
LOC: M LAB 09:56
PROVIDERS: ATTEND Family Medicine
DX: E11.21 Type 2 diabetes mellitus with diabetic nephropathy (principal); E11.628 Type 2 diabetes mellitus with other skin complications; L08.9 Local infection of the skin and subcutaneous tissue, unspecified; J15.69 Pneumonia due to other Gram-negative bacteria

== ENCOUNTER → 2024-01-14 | Outpatient (CLI) | payer MEDICARE, BC | LOC: M LAB 10:11 | PROVIDERS: ATTEND Family Medicine | DX: I50.22 Chronic systolic (congestive) heart failure (principal); J18.9 Pneumonia, unspecified organism; E56.9 Vitamin deficiency, unspecified ==

== ENCOUNTER → 2024-01-14 | Outpatient (CLI) | payer MEDICARE, BC ==
[2024-01-14 11:44] LABS: BLOOD UREA NITROGEN 20 MG/DL (9-23); CALCIUM LEVEL 8.8 MG/DL (8.3-10.6); CARBON DIOXIDE LEVEL 32 MMOL/L (20-31); CHLORIDE LEVEL 106 MMOL/L (98-107); CREATININE FOR GFR 0.79 MG/DL (0.70-1.30); GLOMERULAR FILTRATION RATE > 60.0 (>42); GLUCOSE, FASTING 128 MG/DL (74-106); POTASSIUM SERUM 4.7 MMOL/L (3.5-5.1); SODIUM LEVEL 139 MMOL/L (136-145)
== END ==
LOC: M LAB 10:08
PROVIDERS: ATTEND Internal Medicine Cardiovascular Disease
DX: I50.22 Chronic systolic (congestive) heart failure (principal)

== ENCOUNTER → 2024-01-14 | Outpatient (REF) | payer MEDICARE, BC | LOC: M LAB REF 10:49 | PROVIDERS: ATTEND Internal Medicine Critical Care Medicine | DX: J18.9 Pneumonia, unspecified organism (principal) ==

== ENCOUNTER → 2024-03-21 | Outpatient (CLI) | payer MEDICARE, BC ==
[~2024-03-21] MED LIST changes: -LIDO15SO PO; +LIDO15SO8 PO
[2024-03-21 17:31] LABS: C REACTIVE PROTEIN QUANTITATIV < 0.40 MG/DL (<1.0)
[2024-03-21 17:32] LABS: CPK CREATINE PHOSPHOKINASE 165 U/L (46-171)
== END ==
LOC: M LAB 16:14
PROVIDERS: ATTEND Internal Medicine Cardiovascular Disease
DX: G72.9 Myopathy, unspecified (principal)

== ENCOUNTER → 2024-03-21 | Outpatient (CLI) | payer MEDICARE, BC ==
[2024-03-21 17:32] LABS: BLOOD UREA NITROGEN 25 MG/DL (9-23); CALCIUM LEVEL 8.9 MG/DL (8.3-10.6); CARBON DIOXIDE LEVEL 35 MMOL/L (20-31); CHLORIDE LEVEL 104 MMOL/L (98-107); CREATININE FOR GFR 0.92 MG/DL (0.70-1.30); GLOMERULAR FILTRATION RATE > 60.0 (>42); GLUCOSE, FASTING 125 MG/DL (74-106); POTASSIUM SERUM 4.4 MMOL/L (3.5-5.1); SODIUM LEVEL 141 MMOL/L (136-145)
[2024-03-21 17:59] LABS: HEMOGLOBIN A1c 8.5 % (4.0-6.0)
== END ==
LOC: M LAB 16:13
PROVIDERS: ATTEND Family Medicine
DX: E11.21 Type 2 diabetes mellitus with diabetic nephropathy (principal)

== ENCOUNTER → 2024-06-15 | Outpatient (REF) | payer MEDICARE, BC | LOC: M LAB REF 10:07 | PROVIDERS: ATTEND Internal Medicine Critical Care Medicine | DX: J18.9 Pneumonia, unspecified organism (principal) ==

== ENCOUNTER → 2024-07-18 | Outpatient (REF) | payer MEDICARE, BC ==
[2024-07-18 17:36] LABS: HEMATOCRIT 47.1 % (42.0-52.0); HEMOGLOBIN 15.8 g/dl (13.5-17.5); MEAN CORPUSCULAR HEMOGLOBIN 32.3 pg (27.0-33.0); MEAN CORPUSCULAR HGB CONC 33.5 g/dl (32.0-36.5); MEAN CORPUSCULAR VOLUME 96.3 fl (80.0-96.0); PLATELET COUNT, AUTOMATED 234 10^3/uL (150-450); RED BLOOD COUNT 4.89 10^6/uL (4.30-6.10); WHITE BLOOD COUNT 7.6 10^3/uL (4.0-10.0)
[2024-07-18 17:39] LABS: ALBUMIN 3.6 G/DL (3.2-5.2); ALKALINE PHOSPHATASE 112 U/L (46-116); ALT/SGPT 22 U/L (7.0-40); AST/SGOT 15 U/L (<34); BILIRUBIN,TOTAL 0.5 MG/DL (0.3-1.2); BLOOD UREA NITROGEN 25 MG/DL (9-23); CALCIUM LEVEL 9.2 MG/DL (8.3-10.6); CARBON DIOXIDE LEVEL 32 MMOL/L (20-31); CHLORIDE LEVEL 103 MMOL/L (98-107); CHOLESTEROL LEVEL 163 MG/DL (<200); CHOLESTEROL RISK RATIO 3.72 (<5); CREATININE FOR GFR 0.82 MG/DL (0.70-1.30); GLOMERULAR FILTRATION RATE > 60.0 (>42); GLUCOSE, FASTING 245 MG/DL (74-106); HDL CHOLESTEROL 43.7 MG/DL (>40); LDL CHOLESTEROL 99.7 MG/DL (<100); NON-HDL-C 119.3 MG/DL; POTASSIUM SERUM 5.3 MMOL/L (3.5-5.1); SODIUM LEVEL 138 MMOL/L (136-145); TOTAL PROTEIN 6.4 G/DL (5.7-8.2); TRIGLYCERIDES LEVEL 98 MG/DL (<150)
[2024-07-18 17:41] LABS: FREE T4 1.31 NG/DL (0.89-1.76); THYROID STIMULATING HORMONE 3.808 uIU/ML (0.55-4.78)
[2024-07-18 17:44] LABS: APPEARANCE, URINE MANUAL HAZY (CLEAR); COLOR, URINE MANUAL YELLOW (YELLOW); GLUCOSE, URINE (UA) MANUAL 4+(1000 MG/DL) mg/dL (NEGATIVE); PH,URINE MAN 1.015 UNITS (5.0 - 7.0); PROTEIN, URINE MANUAL TRACE mg/dL (NEGATIVE)
[2024-07-18 17:45] LABS: BILIRUBIN, URINE MANUAL NEGATIVE (NEGATIVE); BLOOD URINE MANUAL POSITIVE (NEGATIVE); KETONE, URINE MANUAL NEGATIVE (NEGATIVE); LEUKOCYTE ESTERASE, URINE MAN POSITIVE (NEGATIVE); NITRITE, URINE MANUAL NEGATIVE (NEGATIVE); UROBILINOGEN, URINE MANUAL NORMAL (NORMAL)
[2024-07-18 17:51] LABS: BACTERIA, URINE MOD AMOUNT; HYALINE CAST, URINE NONE SEEN /lpf (0-1); RBC, URINE 15-20 /hpf (0-3); SQUAMOUS EPITHELIAL CELL URINE LARGE AMOUNT /hpf (SMALL AMT); WBC, URINE 40-50 /hpf (0-3); YEAST, URINE LARGE AMOUNT
[2024-07-18 18:14] LABS: HEMOGLOBIN A1c 8.8 % (4.0-6.0)
[2024-07-18 18:26] LABS: CREATININE, URINE 125.7 MG/DL
[2024-07-18 18:27] LABS: MAU/CREAT RATIO 13.5 MCG/MG (0.0-30.0)
== END ==
LOC: M SFHCADAM 13:42
PROVIDERS: ATTEND Family Medicine
DX: E11.21 Type 2 diabetes mellitus with diabetic nephropathy (principal); I25.10 Atherosclerotic heart disease of native coronary artery without angina pectoris; E03.8 Other specified hypothyroidism; R39.9 Unspecified symptoms and signs involving the genitourinary system; E11.65 Type 2 diabetes mellitus with hyperglycemia; I50.22 Chronic systolic (congestive) heart failure

== ENCOUNTER → 2024-07-20 | Outpatient (REF) | payer MEDICARE, BC | LOC: M SFHCADAM 16:58 | PROVIDERS: ATTEND Family Medicine | DX: R39.9 Unspecified symptoms and signs involving the genitourinary system (principal) ==

== ENCOUNTER → 2024-07-28 | Outpatient (REF) | payer MEDICARE, BC ==
[2024-07-28 19:14] LABS: APPEARANCE, URINE CLEAR (CLEAR); BACTERIA, URINE AUTO NEGATIVE (NEGATIVE); BILIRUBIN, URINE AUTO NEGATIVE (NEGATIVE); BLOOD, URINE BLOOD NEGATIVE (NEGATIVE); COLOR, URINE YELLOW (YELLOW); GLUCOSE, URINE (UA) AUTO 3+ mg/dL (NEGATIVE); KETONE, URINE AUTO NEGATIVE (NEGATIVE); LEUKOCYTE ESTERASE, URINE AUTO 3+ (NEGATIVE); NITRITE, URINE AUTO NEGATIVE (NEGATIVE); PROTEIN, URINE AUTO NEGATIVE (NEGATIVE); RBC, URINE AUTO 1 /HPF (0-3); SPECIFIC GRAVITY URINE AUTO 1.009 (1.002-1.035); SQUAMOUS EPITHELIAL CELL UR AU 1 /HPF (0-6); UROBILINOGEN, URINE AUTO 0.2 mg/dL (0.0-2.0); WBC, URINE AUTO 15 /HPF (0-3)
== END ==
LOC: M SFHCADAM 14:39
PROVIDERS: ATTEND Family Medicine
DX: R30.0 Dysuria (principal)

== ENCOUNTER → 2024-10-24 | Outpatient (CLI) | payer MEDICARE, BC ==
[2024-10-24 12:17] LABS: HEMATOCRIT 49.2 % (42.0-52.0); HEMOGLOBIN 16.4 g/dl (13.5-17.5); MEAN CORPUSCULAR HEMOGLOBIN 32.2 pg (27.0-33.0); MEAN CORPUSCULAR HGB CONC 33.3 g/dl (32.0-36.5); MEAN CORPUSCULAR VOLUME 96.5 fl (80.0-96.0); PLATELET COUNT, AUTOMATED 233 10^3/uL (150-450); WHITE BLOOD COUNT 8.3 10^3/uL (4.0-10.0)
[2024-10-24 12:46] LABS: BLOOD UREA NITROGEN 23 MG/DL (9-23); CALCIUM LEVEL 9.4 MG/DL (8.3-10.6); CARBON DIOXIDE LEVEL 32 MMOL/L (20-31); CHLORIDE LEVEL 101 MMOL/L (98-107); CREATININE FOR GFR 0.99 MG/DL (0.70-1.30); GLOMERULAR FILTRATION RATE > 60.0 (>42); GLUCOSE, FASTING 182 MG/DL (74-106); POTASSIUM SERUM 4.8 MMOL/L (3.5-5.1); SODIUM LEVEL 138 MMOL/L (136-145)
== END ==
LOC: M LAB 11:52
PROVIDERS: ATTEND Family Medicine
DX: E11.21 Type 2 diabetes mellitus with diabetic nephropathy (principal); I50.22 Chronic systolic (congestive) heart failure; J41.0 Simple chronic bronchitis

== ENCOUNTER → 2024-10-24 | Outpatient (REF) | payer MEDICARE, BC | LOC: M SFHCDERM 17:30 | PROVIDERS: ATTEND Dermatology | DX: D04.39 Carcinoma in situ of skin of other parts of face (principal); L57.0 Actinic keratosis ==

== ENCOUNTER → 2025-01-31 | Outpatient (REF) | payer MEDICARE, BC | LOC: M LAB REF 14:25 | PROVIDERS: ATTEND Internal Medicine Critical Care Medicine | DX: J18.9 Pneumonia, unspecified organism (principal) ==

== ENCOUNTER → 2025-02-23 | Outpatient (REF) | payer MEDICARE, BC | LOC: M LAB REF 10:16 | PROVIDERS: ATTEND Internal Medicine Critical Care Medicine | DX: J18.9 Pneumonia, unspecified organism (principal) ==

== ENCOUNTER → 2025-02-27 | Outpatient (CLI) | payer MEDICARE, BC ==
[2025-02-27 12:14] LABS: HEMATOCRIT 47.7 % (42.0-52.0); HEMOGLOBIN 16.4 g/dl (13.5-17.5); MEAN CORPUSCULAR HEMOGLOBIN 32.8 pg (27.0-33.0); MEAN CORPUSCULAR HGB CONC 34.4 g/dl (32.0-36.5); MEAN CORPUSCULAR VOLUME 95.4 fl (80.0-96.0); PLATELET COUNT, AUTOMATED 218 10^3/uL (150-450); WHITE BLOOD COUNT 6.9 10^3/uL (4.0-10.0)
[2025-02-27 12:46] LABS: ALBUMIN 4.2 G/DL (3.2-5.2); ALKALINE PHOSPHATASE 102 U/L (40-129); ALT/SGPT 34 U/L (7.0-40); AST/SGOT 29 U/L (<34); BILIRUBIN,TOTAL 0.4 MG/DL (0.3-1.2); BLOOD UREA NITROGEN 18 MG/DL (9-23); CALCIUM LEVEL 8.9 MG/DL (8.3-10.6); CARBON DIOXIDE LEVEL 32 MMOL/L (20-31); CHLORIDE LEVEL 103 MMOL/L (98-107); CHOLESTEROL LEVEL 153 MG/DL (<200); CHOLESTEROL RISK RATIO 2.77 (<5); CREATININE FOR GFR 0.85 MG/DL (0.70-1.30); GLOMERULAR FILTRATION RATE > 60.0 (>42); GLUCOSE, FASTING 148 MG/DL (74-106); HDL CHOLESTEROL 55.1 MG/DL (>40); LDL CHOLESTEROL 76.3 MG/DL (<100); NON-HDL-C 97.9 MG/DL; POTASSIUM SERUM 4.7 MMOL/L (3.5-5.1); SODIUM LEVEL 139 MMOL/L (136-145); TOTAL PROTEIN 6.6 G/DL (5.7-8.2); TRIGLYCERIDES LEVEL 108 MG/DL (<150)
[2025-02-27 12:55] LABS: HEMOGLOBIN A1c 7.7 % (4.0-6.0)
== END ==
LOC: M LAB 11:39
PROVIDERS: ATTEND Family Medicine
DX: E11.21 Type 2 diabetes mellitus with diabetic nephropathy (principal)

== ENCOUNTER → 2025-03-02 | Outpatient (CLI) | payer MEDICARE, BC | LOC: M PLAIMG 11:05 | PROVIDERS: ATTEND Internal Medicine Critical Care Medicine | DX: Z12.2 Encounter for screening for malignant neoplasm of respiratory organs (principal); F17.218 Nicotine dependence, cigarettes, with other nicotine-induced disorders; J90 Pleural effusion, not elsewhere classified ==

== ENCOUNTER → 2025-03-16 | Outpatient (CLI) | payer MEDICARE, BC | LOC: M RAD 10:09 | PROVIDERS: ATTEND Family Medicine | DX: G40.A09 Absence epileptic syndrome, not intractable, without status epilepticus (principal); G31.9 Degenerative disease of nervous system, unspecified ==

== ENCOUNTER → 2025-03-22 | Outpatient (CLI) | payer MEDICARE, BC ==
[2025-03-22 12:38] LABS: THYROID STIMULATING HORMONE 4.214 uIU/ML (0.55-4.78)
[2025-03-22 12:39] LABS: FREE T4 1.27 NG/DL (0.89-1.76)
== END ==
LOC: M SLEEP 09:13
PROVIDERS: ATTEND Family Medicine
DX: G40.A09 Absence epileptic syndrome, not intractable, without status epilepticus (principal); E03.8 Other specified hypothyroidism

== ENCOUNTER → 2025-05-28 | Outpatient (CLI) | payer MEDICARE, BC ==
[~2025-05-28] MED LIST changes: +D31000CA5 PO; -VITA100054 PO
[2025-05-28 14:49] LABS: PLATELET COUNT, AUTOMATED 296 10^3/uL (150-450)
[2025-05-28 15:08] LABS: ESTIMATED AVERAGE GLUCOSE 177.0 MG/DL (60-110)
[2025-05-28 15:12] LABS: C REACTIVE PROTEIN QUANTITATIV 1.07 MG/DL (<1.0)
[2025-05-28 15:13] LABS: ALT/SGPT 24.0 U/L (7.0-40); AST/SGOT 26.0 U/L (<34); CALCIUM LEVEL 9.3 MG/DL (8.3-10.6); CARBON DIOXIDE LEVEL 33.0 MMOL/L (20-31); CHLORIDE LEVEL 102.0 MMOL/L (98-107); CHOLESTEROL LEVEL 133.0 MG/DL (<200); CHOLESTEROL RISK RATIO 2.99 (<5); CREATININE FOR GFR 1.08 MG/DL (0.70-1.30); GLOMERULAR FILTRATION RATE 72.5 (>42); LDL CHOLESTEROL 73.4 MG/DL (<100); NON-HDL-C 88.6 MG/DL; POTASSIUM SERUM 5.0 MMOL/L (3.5-5.1); SODIUM LEVEL 141.0 MMOL/L (136-145); TRIGLYCERIDES LEVEL 76.0 MG/DL (<150)
[2025-05-28 15:15] LABS: FREE T4 1.47 NG/DL (0.89-1.76)
== END ==
LOC: M LAB 13:25
PROVIDERS: ATTEND Family Medicine
DX: I25.5 Ischemic cardiomyopathy (principal); R63.4 Abnormal weight loss; E11.21 Type 2 diabetes mellitus with diabetic nephropathy; J44.9 Chronic obstructive pulmonary disease, unspecified; E03.8 Other specified hypothyroidism; E78.2 Mixed hyperlipidemia; I11.0 Hypertensive heart disease with heart failure

== ENCOUNTER → 2025-07-27 | Outpatient (REF) | payer MEDICARE, BC | LOC: M LAB REF 09:52 | PROVIDERS: ATTEND Internal Medicine Critical Care Medicine | DX: J18.9 Pneumonia, unspecified organism (principal) ==

== ENCOUNTER → 2025-08-07 | Outpatient (CLI) | payer MEDICARE, BC ==
[2025-08-07 13:04] LABS: BASO # 0.0 10^3/uL (0.0-0.2); BASO % 0.5 % (0.0-1.0); EOS # 0.1 10^3/uL (0.0-0.5); EOS % 0.6 % (0.0-3.0); LYMPH # 0.8 10^3/uL (1.5-5.0); LYMPH % 10.2 % (24.0-44.0); MONO # 0.6 10^3/uL (0.0-0.8); MONO % 7.8 % (2.0-8.0); NEUTROPHILS # 6.4 10^3/uL (1.5-8.5); NEUTROPHILS % 80.4 % (36.0-66.0); PLATELET COUNT, AUTOMATED 230 10^3/uL (150-450)
[2025-08-07 13:36] LABS: C REACTIVE PROTEIN QUANTITATIV < 0.50 MG/DL (<1.0)
== END ==
LOC: M RAD 11:35
PROVIDERS: ATTEND Internal Medicine Critical Care Medicine
DX: R91.8 Other nonspecific abnormal finding of lung field (principal); J90 Pleural effusion, not elsewhere classified; J18.9 Pneumonia, unspecified organism